=== PATIENT | male | born 1990 | race Caucasian/White ===

== ENCOUNTER → 2016-11-24 | Outpatient (REF) | payer OTHER ==
[~2016-11-24] MED LIST: ATIV1TAB10 PO; NAPR375T PO; NAPR375T2 PO; PRAZ1CAP PO; SERT-141 PO; ZIPR20CA13 PO; atarax PO
[2016-11-24 13:05] LABS: BASO # 0.1 K/mm3 (0.0-0.2); EOS # 0.2 K/mm3 (0.0-0.50); EOS % 2.7 % (0.0-3.0); LARGE UNSTAINED CELL # 0.2 K/mm3 (0.0-0.4); LYMPH # 2.2 K/mm3 (1.5-6.5); LYMPH % 27.8 % (24.0-44.0); MEAN CORPUSCULAR HEMOGLOBIN 27.7 pg (27.0-33.0); MEAN CORPUSCULAR HGB CONC 33.9 g/dl (32.0-36.5); MEAN CORPUSCULAR VOLUME 81.7 fl (80.0-96.0); MONO # 0.4 K/mm3 (0.0-0.8); MONO % 4.8 % (0.0-5.0); NEUTROPHILS # 4.8 K/mm3 (1.8-7.7); NEUTROPHILS % 60.6 % (36.0-66.0); PLATELET COUNT, AUTOMATED 236 k/mm3 (150-450); RED CELL DISTRIBUTION WIDTH 12.4 % (11.5-14.5); WHITE BLOOD COUNT 7.9 K/mm3 (4.0-10.0)
== END ==
LOC: M SFHCPLAZ 09:33
PROVIDERS: ATTEND Physician Assistant
DX: R36.9 Urethral discharge, unspecified (principal)

== ENCOUNTER → 2016-12-04 | Outpatient (REF) | payer OTHER ==
[2016-12-04 11:55] LABS: BASO % 0.6 % (0.0-1.0); EOS # 0.2 K/mm3 (0.0-0.50); EOS % 2.9 % (0.0-3.0); LARGE UNSTAINED CELL # 0.2 K/mm3 (0.0-0.4); LARGE UNSTAINED CELL % 2.3 % (0.0-4.0); LYMPH # 2.1 K/mm3 (1.5-6.5); LYMPH % 25.4 % (24.0-44.0); MEAN CORPUSCULAR HEMOGLOBIN 28.1 pg (27.0-33.0); MEAN CORPUSCULAR HGB CONC 34.3 g/dl (32.0-36.5); MEAN CORPUSCULAR VOLUME 81.9 fl (80.0-96.0); MONO # 0.4 K/mm3 (0.0-0.8); MONO % 4.8 % (0.0-5.0); NEUTROPHILS # 5.4 K/mm3 (1.8-7.7); PLATELET COUNT, AUTOMATED 282 k/mm3 (150-450); RED CELL DISTRIBUTION WIDTH 12.6 % (11.5-14.5); WHITE BLOOD COUNT 8.4 K/mm3 (4.0-10.0)
[2016-12-04 12:23] LABS: ALBUMIN 3.7 GM/DL (3.2-5.2); ALKALINE PHOSPHATASE 107 U/L (45-117); ALT/SGPT 27 U/L (12-78); ANION GAP 9 MEQ/L (8-16); AST/SGOT 11 U/L (15-37); BILIRUBIN,TOTAL 0.3 MG/DL (0.2-1.0); BLOOD UREA NITROGEN 16 MG/DL (7-18); CALCIUM LEVEL 8.5 MG/DL (8.5-10.1); CARBON DIOXIDE LEVEL 25 MEQ/L (21-32); CHLORIDE LEVEL 108 MEQ/L (98-107); CHOLESTEROL LEVEL 145 MG/DL (<200); CREATININE FOR GFR 1.15 MG/DL (0.70-1.30); FERRITIN 54 NG/ML (26-388); GLOMERULAR FILTRATION RATE > 60.0 (>60); GLUCOSE, FASTING 82 MG/DL (70-105); MAGNESIUM LEVEL 2.2 MG/DL (1.8-2.4); PERCENT SATURATION 16.7 % (19.7-37.4); POTASSIUM SERUM 4.3 MEQ/L (3.5-5.1); SODIUM LEVEL 142 MEQ/L (136-145); TOTAL IRON BINDING CAPACITY 378 UG/DL (250-450); TOTAL PROTEIN 7.4 GM/DL (6.4-8.2); TRIGLYCERIDES LEVEL 179 MG/DL (<150)
== END ==
LOC: M SFHCPLAZ 08:54
PROVIDERS: ATTEND Physician Assistant
DX: D50.9 Iron deficiency anemia, unspecified (principal); E78.4 Other hyperlipidemia; E83.42 Hypomagnesemia; E55.9 Vitamin D deficiency, unspecified

== ENCOUNTER → 2016-12-09 | Outpatient (CLI) | payer OTHER ==
--- NOTE | 2016-12-09 16:49 | REP ---
SCROTAL ULTRASOUND: 12/09/2016. Clinical history: Scrotal pain. Comparison: 08/03/2013. Findings: The right testis is 4.1 x 2.6 x 4.2 cm. Left testis is 4.6 x 2.6 x 4 cm. Both are homogeneous in echotexture. There is no mass, cyst, calcification or abnormal blood flow. There is no hyperemia. I see no hydrocele. There is somewhat prominent vessels on the left which do not change in diameter with Valsalva maneuver. No evidence of torsion or torsion detorsion. The Doppler tracing shows resistive index 0.53 on the right and 0.59 on the left. Epididymal head has a CC diameter of 1.5 cm on the right and 0.8 cm on left without cyst or solid mass nor hyperemia to suggest epididymitis. Impression: 1. Bilateral testes are normal in size and show no hyperemia, epididymitis, epididymal cyst or hydrocele. 2. Some prominent vessels on the left without change in caliber with Valsalva maneuver, cannot confirm varicocele. 3. No evidence of testicular mass or focal lesion. Normal blood flow in both testes. Signed by Manolo Wilson MD 12/09/2016 04:54 P
== END ==
LOC: M RAD 14:56
PROVIDERS: ATTEND Physician Assistant
DX: N45.1 Epididymitis (principal); N50.819 Testicular pain, unspecified

== ENCOUNTER → 2017-01-05 | Outpatient (CLI) | payer OTHER ==
[~2017-01-05] MED LIST changes: +GASTROGRAFIN SOLUTION 30ML (Q9963) As Ordered ONE; +ISOVUE-370 76% 100ML VIAL (Q9967) As Ordered ONE; -SERT-141 PO; +SERT50TA PO
--- NOTE | 2017-01-05 15:14 | REP ---
Clinical: Abdominal and testicular pain. Technique: Axial contrast enhanced images from the lung bases to the pubic symphysis using oral and 100 ml Isovue 370 intravenous contrast material with noncontrast images of the abdomen as well as coronal and sagittal re-formations. Findings: Lung bases are clear. Visualized heart and pericardium normal. Liver, spleen, pancreas, gallbladder, bilateral adrenal glands and kidneys are normal. The enteric system is without obstruction or acute inflammatory process. Normal terminal ileum and appendix identified in the right lower quadrant pelvis demonstrates normal bladder and age appropriate prostate/seminal vesicles. No significant ventral or inguinal hernias. No ascites. No adenopathy. No free air. Vasculature appears normal. Musculoskeletal structures are intact. Impression: Normal contrast enhanced CT of the abdomen and pelvis. Signed by Scotty Tang MD 01/05/2017 03:06 P
== END ==
LOC: M RAD 12:52
PROVIDERS: ATTEND Nurse Practitioner Women's Health
DX: R10.30 Lower abdominal pain, unspecified (principal); N50.819 Testicular pain, unspecified
CPT/HCPCS: 74178; Q9963; Q9967

== ENCOUNTER → 2017-06-25 | Outpatient (REF) | payer OTHER ==
[~2017-06-25] MED LIST changes: -GASTROGRAFIN SOLUTION 30ML (Q9963) As Ordered ONE; -ISOVUE-370 76% 100ML VIAL (Q9967) As Ordered ONE; +NAPR-855 PO; -NAPR375T2 PO
== END ==
LOC: M SFHCPLAZ 09:30
PROVIDERS: ATTEND Physician Assistant
DX: E55.9 Vitamin D deficiency, unspecified (principal)

== ENCOUNTER → 2017-07-01 | Outpatient (REF) | payer OTHER | LOC: M SFHCPLAZ 11:44 | PROVIDERS: ATTEND Family Medicine | DX: L98.9 Disorder of the skin and subcutaneous tissue, unspecified (principal) ==

== ENCOUNTER → 2017-09-28 | Outpatient (CLI) | payer OTHER ==
--- NOTE | 2017-10-01 16:29 | SLEEPHOME ---
DATE OF PROCEDURE: 09/28/2017 REFERRING PHYSICIAN: [facility] home sleep testing was performed due to concern for the obstructive sleep apnea syndrome in this patient with a history of excessive somnolence and nonrestorative sleep. 10 hours and 59 minutes of data were reviewed. Of these, 8 hours and 34 minutes were marked as time in bed. During the interval marked time in bed there were 51 respiratory events were identified of 10 seconds in duration or greater for a respiratory event index of 5.9. The events were primary obstructive. Baseline pulse rate was 83. Pulse rate ranged 43-112. Baseline oxygen saturation was 94%. Lowest oxygen saturation recorded was 81%. Testing was performed in both the supine and non-supine positions. IMPRESSION: Abnormal home sleep testing with repetitive respiratory events and oxygen desaturations to 81% with a respiratory event index of 5.9 is consistent with the obstructive sleep apnea syndrome. RECOMMENDATIONS: The patient should be referred for formal sleep evaluation and in laboratory pressure titration.
== END ==
LOC: M SLEEP HO 13:06
PROVIDERS: ATTEND Nurse Practitioner Adult Health
DX: G47.30 Sleep apnea, unspecified (principal)

== ENCOUNTER → 2018-02-04 | Outpatient (REF) | payer OTHER ==
[2018-02-04 14:02] LABS: ALBUMIN 3.8 GM/DL (3.2-5.2); ALBUMIN/GLOBULIN RATIO 0.97 (1.00-1.93); ALKALINE PHOSPHATASE 90 U/L (45-117); ALT/SGPT 45 U/L (12-78); ANION GAP 6 MEQ/L (8-16); AST/SGOT 29 U/L (7-37); BILIRUBIN,TOTAL 0.4 MG/DL (0.2-1.0); BLOOD UREA NITROGEN 15 MG/DL (7-18); CALCIUM LEVEL 8.7 MG/DL (8.5-10.1); CARBON DIOXIDE LEVEL 30 MEQ/L (21-32); CHLORIDE LEVEL 104 MEQ/L (98-107); CHOLESTEROL LEVEL 166 MG/DL (<200); CREATININE FOR GFR 1.13 MG/DL (0.70-1.30); GLOMERULAR FILTRATION RATE > 60.0 (>60); GLUCOSE, FASTING 87 MG/DL (70-100); HDL CHOLESTEROL 25 MG/DL (>40); LDL CHOLESTEROL 89.6 MG/DL (<100); NON-HDL-C 141 MG/DL; POTASSIUM SERUM 4.2 MEQ/L (3.5-5.1); SODIUM LEVEL 140 MEQ/L (136-145); TOTAL PROTEIN 7.7 GM/DL (6.4-8.2); TRIGLYCERIDES LEVEL 257 MG/DL (<150)
[2018-02-04 14:57] LABS: ESTIMATED AVERAGE GLUCOSE 111 MG/DL (60-110); HEMOGLOBIN A1c 5.5 %
== END ==
LOC: M SFHCPLAZ 11:21
DX: E66.01 Morbid (severe) obesity due to excess calories (principal)

== ENCOUNTER → 2018-11-08 | Outpatient (REF) | payer OTHER | LOC: M SFHCPLAZ 09:39 | PROVIDERS: ATTEND Family Medicine | DX: Z13.1 Encounter for screening for diabetes mellitus (principal); Z13.220 Encounter for screening for lipoid disorders; E55.9 Vitamin D deficiency, unspecified ==

== ENCOUNTER → 2019-09-26 | Outpatient (REF) | payer OTHER ==
[~2019-09-26] MED LIST changes: +SERT-141 PO; -SERT50TA PO
[2019-09-26 15:29] LABS: HEMATOCRIT 43.5 % (42.0-52.0); HEMOGLOBIN 14.6 g/dl (13.5-17.5); MEAN CORPUSCULAR HEMOGLOBIN 27.6 pg (27.0-33.0); MEAN CORPUSCULAR HGB CONC 33.6 g/dl (32.0-36.5); MEAN CORPUSCULAR VOLUME 82.2 fl (80.0-96.0); PLATELET COUNT, AUTOMATED 245 10^3/uL (150-450); RED BLOOD COUNT 5.29 10^6/uL (4.30-6.10); WHITE BLOOD COUNT 6.6 10^3/uL (4.0-10.0)
[2019-09-26 15:50] LABS: HEMOGLOBIN A1c 5.6 %
[2019-09-26 16:03] LABS: ALT/SGPT 38 U/L (12-78); BILIRUBIN,TOTAL 0.3 MG/DL (0.2-1.0); BLOOD UREA NITROGEN 15 MG/DL (7-18); CARBON DIOXIDE LEVEL 28 MEQ/L (21-32); CHLORIDE LEVEL 107 MEQ/L (98-107); CHOLESTEROL LEVEL 174 MG/DL (<200); CHOLESTEROL RISK RATIO 6.692 (<5); CREATININE FOR GFR 1.03 MG/DL (0.70-1.30); GLOMERULAR FILTRATION RATE > 60.0 (>60); GLUCOSE, FASTING 77 MG/DL (70-100); HDL CHOLESTEROL 26 MG/DL (>40); NON-HDL-C 148 MG/DL; POTASSIUM SERUM 4.1 MEQ/L (3.5-5.1); SODIUM LEVEL 141 MEQ/L (136-145); TRIGLYCERIDES LEVEL 519 MG/DL (<150)
[2019-09-26 16:04] LABS: ALBUMIN 3.7 GM/DL (3.2-5.2); FREE T4 2.18 NG/DL (0.76-1.46); TOTAL PROTEIN 7.1 GM/DL (6.4-8.2)
== END ==
LOC: M SFHCPLAZ 13:56
PROVIDERS: ATTEND Physician Assistant
DX: E55.9 Vitamin D deficiency, unspecified (principal); E66.01 Morbid (severe) obesity due to excess calories; E78.2 Mixed hyperlipidemia; G47.30 Sleep apnea, unspecified

== ENCOUNTER → 2020-07-06 | Outpatient (CLI) | payer OTHER ==
[2020-07-06 17:40] LABS: BLOOD UREA NITROGEN 18 MG/DL (7-18); CARBON DIOXIDE LEVEL 28 MEQ/L (21-32); CHLORIDE LEVEL 105 MEQ/L (98-107); CHOLESTEROL LEVEL 173 MG/DL (<200); CHOLESTEROL RISK RATIO 6.407 (<5); CREATININE FOR GFR 1.13 MG/DL (0.70-1.30); FREE T4 2.03 NG/DL (0.76-1.46); GLOMERULAR FILTRATION RATE > 60.0 (>60); GLUCOSE, FASTING 86 MG/DL (70-100); HDL CHOLESTEROL 27 MG/DL (>40); LDL CHOLESTEROL 96 MG/DL (<100); NON-HDL-C 146 MG/DL; POTASSIUM SERUM 4.4 MEQ/L (3.5-5.1); SODIUM LEVEL 141 MEQ/L (136-145); TRIGLYCERIDES LEVEL 250 MG/DL (<150)
[2020-07-09 10:47] LABS: TOTAL 25(OH) VITAMIN D 35.7 NG/ML (30.0-100.0)
== END ==
LOC: M PLALAB 14:09
PROVIDERS: ATTEND Physician Assistant
DX: E55.9 Vitamin D deficiency, unspecified (principal); E78.2 Mixed hyperlipidemia; R94.6 Abnormal results of thyroid function studies

== ENCOUNTER → 2020-11-23 | Outpatient (REF) | payer OTHER ==
[2020-11-23 18:05] LABS: HEMOGLOBIN A1c 5.3 %
[2020-11-23 18:14] LABS: HEMATOCRIT 46.8 % (42.0-52.0); HEMOGLOBIN 15.5 g/dl (13.5-17.5); MEAN CORPUSCULAR HEMOGLOBIN 27.3 pg (27.0-33.0); MEAN CORPUSCULAR HGB CONC 33.1 g/dl (32.0-36.5); MEAN CORPUSCULAR VOLUME 82.4 fl (80.0-96.0); PLATELET COUNT, AUTOMATED 300 10^3/uL (150-450); RED BLOOD COUNT 5.68 10^6/uL (4.30-6.10)
[2020-11-23 18:17] LABS: FREE T4 2.99 NG/DL (0.76-1.46); THYROID STIMULATING HORMONE 2.33 uIU/ML (0.358-3.740)
[2020-11-23 18:18] LABS: TOTAL 25(OH) VITAMIN D 21.7 NG/ML (30.0-100.0)
== END ==
LOC: M PLALAB 14:34
PROVIDERS: ATTEND Physician Assistant
DX: K21.9 Gastro-esophageal reflux disease without esophagitis (principal); E05.90 Thyrotoxicosis, unspecified without thyrotoxic crisis or storm; E66.01 Morbid (severe) obesity due to excess calories; E55.9 Vitamin D deficiency, unspecified

== ENCOUNTER → 2021-01-24 | Outpatient (CLI) | payer OTHER | LOC: M PLALAB 15:35 | PROVIDERS: ATTEND Nurse Practitioner Family | DX: R94.6 Abnormal results of thyroid function studies (principal) ==

== ENCOUNTER → 2021-08-09 | Outpatient (CLI) | payer OTHER ==
[~2021-08-09] MED LIST changes: +HYDR50CA2 PO; +IBUP-1022 PO; +LATANOPROST; +OMEP-221 PO; +PROP15DR12
--- NOTE | 2021-08-10 18:20 | ECGEPIP ---
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
== END ==
LOC: M EKG 09:46
PROVIDERS: ATTEND Anesthesiology
DX: G47.9 Sleep disorder, unspecified (principal)

== ENCOUNTER → 2021-08-09 | Outpatient (CLI) | payer OTHER | LOC: M LABSMTC 09:27 | PROVIDERS: ATTEND Anesthesiology | DX: Z01.818 Encounter for other preprocedural examination (principal); Z11.52 Encounter for screening for COVID-19 ==

== ENCOUNTER 2021-08-14 07:47 | Day surgery (SDC) | payer OTHER ==
[~2021-08-14] VITALS: Ht 177.8 cm; Wt 157.4 kg
[~2021-08-14 07:47] MED LIST changes: +LIDOCAINE 1% MDV 20ML VIAL SQ PRN; +LR 1,000 ML IV ONE
--- OUTSIDE RECORDS SUMMARY | 2021-08-14 07:51 | CCD ---
Author Author [facility] Organization [facility] Address Unknown Phone Unavailable Care Team Providers Care Rafter Cutting Machine Operator Name Role Phone Mercy Melendez Unavailable PROBLEMS Type Condition ICD9-CM Code PVN20-TL Code Onset Dates Condition S tatus W/U Status Risk SNOMED Code Notes Problem Headache R51 Active confirmed 09847441 Problem Other hyperlipidemia E78.4 Active confirmed 60053128 Problem Epilepsy, unspecified, not intractable, without status epilepticus G40.909 Active confirmed 85833547 Problem GERD (gastroesophageal reflux disease) K21.9 A ctive confirmed 896058058 Problem Other obesity E66.8 Active confirmed 011399 001 Problem Vitamin D deficiency E55.9 Active confirmed 17190633 Problem Depression F32.9 Active confirmed 24241355 Problem Body mass index (BMI) of 45.0-49.9 in adult Z68.42 Active confirmed 300093423 Problem Sleep apnea, unspecified type G47.30 Active confirm ed 09451414 Problem Ulnar neuropathy at elbow of left upper extremity G56.22 Active confirmed 575215136 Problem Bilateral carpal tunnel syndrome G56.03 Active confirmed 45530969819692595 Problem Morbid (severe) obesity due to excess calories E66 .01 Active confirmed 860936231 Problem Swelling of tonsil J35.1 Active confirmed 4 45257669 Problem Urethral discharge R36.9 Active confirmed 9 284405 Problem Mixed hyperlipidemia E78.2 Active confirmed 649595056 Problem History of bipolar disorder Z86.59 Active confirmed 755717151 Problem Chewing tobacco nicotine dependence without complication F17.220 Active confirmed 71799760 Problem Subclinical hyperthyroidism E05.90 Active confirmed 837338737 ALLERGIES Allergen (clinical drug ingredient) Drug/Non Drug Allergy do cumented on EMR Reaction Allergy Type Onset Date Status Chocolate chocolate vomiting Non Drug Allergy Active ENCOUNTERS from 1989 to 2021-08-09 Encounter Location Date Provider Diagnosis [facility] Nicolasa [address] [phone] [place] [address] Jul, Mercy Melendez History of bipolar disorder Z86.59 ; Mixed hyperlipidemia E78.2 ; Morbid (severe) obesity due to excess calories E66.01 ; Depression F32.9 ; Sleep apnea, unspecified type G47.30 and Chewing tobacco nicotine dependence without complication F17.220 IMMUNIZATIONS Vaccine Route Administration Date Status Influenza 18 yrs & older Flublok IM Intramuscular Oct 19, 2020 Administered TDAP IM Intramuscular Aug 29, 2015 Administered Influenza 6mo & up Fluzone Unknown Jul 05, 2017 Admin istered Influenza 6mo & up Fluzone Unknown Jul 30, 2016 Admin istered Influenza 6mo & up Fluzone IM Intramuscular Aug 29, 2015 Admi nistered Influenza 6mo & up Fluzone IM Intramuscular Jul 12, 2014 Admi nistered Influenza 6mo & up Fluzone IM Intramuscular Aug 01, 2013 Admi nistered SOCIAL HISTORY Tobacco Use: Social History Observation Description Date Details (start date - stop date) never smoker Sex Assigned At : Social History Observation Description Sex Assigned At Unknown Audit Question Answer Notes Total Score: 0 Interpretation: Alcohol Education Language: Question Answer Notes Languages spoken: Latvian Latter-Day: Question Answer Notes Latter-Day 33 None Sexual Hx: Question Answer Notes Had sex in the last 12 months (vaginal, oral, or anal)? Yes Have you ever had an STD? No Prevention Strategies discussed: Other with Women only Use protection? No Drug and Alcohol Question Answer Notes Total Score: 0 Interpretation: No problems reported Alcohol Screening: Question Answer Notes Did you have a drink containing alcohol in the past year? No Points 0 Interpretation Negative BMI Care Goal Follow-Up Question Answer Notes Above Normal BMI Follow-Up Giving encouragement to exercise Tobacco Use: Question Answer Notes Are you a: never smoker Additional Findings: Tobacco User Chews tobacco Smoking Cessation Information Given 06/25/2017 REASON FOR REFERRAL No Information VITAL SIGNS Weight 353.6 lbs Jul, Weight-kg 160.39 kg Jul, Height 70 in Jul, BMI 50.73 kg/m2 Jul, MEDICATIONS Medication SIG (Take, Route, Frequency, Duration) Notes Start Da te End Date Status MiraLax 1 packet mixed with 8 ounces of fluid Or ally Once a day for 30 day(s) taking as needed February, Active Topiramate 100 mg 1 tab Orally Daily at bedtime Dr Baer Not-Taking Prazosin HCl 5 MG 1 capsule Orally Daily at bedtime Active oxyCODONE-Acetaminophen 5-325 MG (Schedule II Drug) TA KE ONE TABLET BY MOUTH EVERY 6 HOURS NEEDED FOR PAIN MAXIMUM DAILY DOSE 5 Oral for 3 Not-Taking Artificial Tears 1.4 % Ophthalmic A ctive Xalatan 0.005 % 1 drop into affected eye in the evening Ophthalm ic Once a day Active traZODone HCl 100 MG 1 tablet at bedtime Orally Once a day Not-Taking hydrOXYzine HCl 50 MG 1 tablet as needed Orally every 8 hrs Active buPROPion HCl ER (SR) 150 MG 1 tablet Orally Twice a day for 90 day(s ) Not-Taking Contrave 8-90 MG 2 tablets Orally Twice a day for 30 day( s) Start with one tab twice daily for one week, then increase to 2 tabs twice daily Oct, Not-Taking Gabapentin 300 MG 1 capsule Orally three times daily Active Vitamin D (Ergocalciferol) 1.25 MG (68732 UT) 1 capsul e Orally once a week for 90 days Sep, Not-Taking Prazosin HCl 2 MG 1 capsule at bedtime Orally Once a day for 30 day(s ) Active Vraylar 1.5 MG 1 cap Orally Once a day Not-Taking Triamcinolone Acetonide 0.1 % 1 application to rash on forearms Externally Twice a day for 7 day(s) May, Not-Taking Ibuprofen 800 MG 1 tablet with food or milk as needed Ora lly Three times a day Active Trulicity 0.75 MG/0.5ML as directed Subcutaneous weekly for 30 d ay(s) Nov, Not-Taking Omeprazole 40 MG 1 capsule Orally Once a day for 90 day(s) Active Glucocard Expression Test - as directed In Vitro three times daily for 30 Days Aug, Not-Taking Naltrexone HCl 50 MG half of a tablet orally BID for 30 days Not-Taking Omeprazole 20 MG TAKE ONE CAPSULE BY MOUTH EVERY DAY for 30 duplicate Not-Taking Nicorette Mini 2 MG 1 lozenge as needed Mouth/Th roat q2 hours prn. MDD 12 for 30 day(s) Mar, Not-Taking Vitamin D 2000 UNIT 1 tablet Orally Once a day for 90 day(s) Nov, Active Wrist Brace - as directed left wrist to be worn nightl y, Dx: G56.03 for 99 days Jan, Active Wrist Brace - as directed right wrist to b e worn nightly, Dx: G56.03 for 99 days Jan, Active PROCEDURES No Information RESULTS No Results REASON FOR VISIT CCM F/U MEDICAL (GENERAL) HISTORY Type Description Date Medical History Testalgia Medical History Anxiety Medical History Depression Medical History Hallucination Medical History Obesity Medical History Penile discharge Medical History Arthritis right knee Medical History primary open angle glaucoma, mild, left eye- follows with ophthalmology Medical History Free T4 elevated- referred t o endocrinology 01/2021, nothing wrong, check thyroid levels annually Surgical History wisdom teeth removal 10/2019 Hospitalization History psychiatric illness 05/06/14- 4 Goals Section No Information Health Concerns No Information MEDICAL EQUIPMENT No Information MENTAL STATUS No Information FUNCTIONAL STATUS No Information ASSESSMENTS Encounter Date Diagnosis Assessment Notes Treatment Notes Treatm ent Clinical Notes Jul, History of bipolar disorder (ICD-10 - Z86.59) Jul, Mixed hyperlipidemia (ICD-10 - E78.2) Jul, Morbid (severe) obesity due to excess calories ( ICD-10 - E66.01) Jul, Depression (ICD-10 - F32.9) Jul, Sleep apnea, unspecified type (ICD-10 - G47.30) Jul, Chewing tobacco nicotine dep endence without complication (ICD-10 - F17.220) Jul, Other Notes: Chronic Care Plan and Goals Labs of Note 11/23/20: HgA1c 5.3 07/06/2020: Trigylcerides 250 (goal <150), Cholesterol HDL 27(goal >40), LDL 96(goal <100) Vitals 01/01/21 : Wt(BMI) 331.2(47.5) 06/11/21 : Wt(BMI) 340.6(48.78) 08/06/21 : Wt(BMI) 353.6 (50.73) 10/19/20 BP 134/86 06/11/21 BP 130/80 Patient Goals with Plan and Timeframe 1)Lose Weight- Plan: Will increase activity by adding intentional exercise, continuing to work outside 4-5 time a week (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 Lifestyle Change #1: 1 mile or 20 minute morning walk (either outdoors or using [employer] Walking Video) 5 times per week by next visit. 08/06/21 walking 1 day per week, plan to increase to 2x/week by next appointment 2)Improve Cholesterol Labwork- Plan: Will improve nutrition by making diet changes Lifestyle Change #2: Reduce soda intake, replace soda with water and low/no calorie sweetener/flavor, only one soda per week by next visit. 08/06/21-Changed to sugar free drinks at home. Has been drinking soda when provided while working, plan to reduce to 1 daily. Lifestyle Change #3: Use portion plate method at meal time. Eat at least one vegetable and one -fruit daily by next office visit. Lifestyle Change #4: Find one new recipe you like that you can make at home that follows the portion plate. Report on it next visit. 08/06/21-Sheppards pie with other vegetable instead of corn, no cheese Educational Materials: Planning Healthy Meals Food Nutrition Guide-(Replacement, last one damaged) 3)Continue to improve mental health Plan: Continue to attend counseling appointments 4)Attend all scheduled follow-up appointments Plan: Continue to schedule transportation in advance Please call with any questions, comments, or concerns. PLAN OF TREATMENT Next Appt Details 4 Weeks Reason:CCM Follow-Up Provider Name:Mercy Melendez, 2021-09-10 01:30:00 PM, [address] [place] [address] , [place], [address], Provider Name:Libia Gonzáles, 12-10 01:45:00 PM, [address] [place] [address] , [place], [address], Follow Up:4 WeeksCCM Follow-Up Insurance Providers Payer Name Payer Address Payer Phone Insured Name Patient Relati onship to Insured Coverage Start Date Coverage End Date [facility] COMMUNITY PLAN [facility] [place] [address] [facility] [id number] NANCY CISSE self
--- OUTSIDE RECORDS SUMMARY | 2021-08-14 07:52 | CCD | Continuity of Care Document ---
Author Author Sanchez VELASCO MD Organization Unknown Address [address] [place] [address] Phone [phone] Care Team Providers Care Perfect Bind Machine Operator Name Role Phone Renee Sullivan P.A.-C AUTM [phone] AUTM Unavailable AUTM Unavailable Problems Active Problems Provider Date Disturbance of consciousness Aicha East A.NDerrickPDerrick Onse t: 09/15/2017 Sleep apnea Aicha [facility] A.N.P. Onset: 2016 Social History Type Date Description Comments Sex Unknown Smokeless Tobacco Current User ETOH Use Denies alcohol use Tobacco Use Reviewed: 05/23/20 Patient has never smoked Recreational Drug Use Denies Drug Use Smoking Status Reviewed: 05/23/20 Patient has never smoked Allergies and adverse reactions Description No Known Drug Allergies Medications Active Medications SIG Qnty Indications Ordering Provide r Date CPAP Apap 4-20/Zach Hyman MD 2018 Prazosin HCL 5mg Capsules 1 cap by mouth every day Unknown Omeprazole 40mg Capsules DR 1 tab. by mouth daily Unknown Prazosin HCL 2mg Capsules 1 cap by mouth every day Unknown Hydroxyzine HCL 50mg Tablets as needed 30tabs Unknown Latanoprost 0.005% Solution instill one drop in each eye at night time. Unknown Lubricant Eye Drops PF 0.5% Solution Unknown Vitamin D3 Super Strength 50mcg (2000 Ut) Capsules Unknown Ibuprofen 800mg Tablets q8h p rn Unknown Gabapentin 300mg Capsules bid Unknown Immunizations Description No Information Available Vital Signs Date Vital Result Comment 07/18/2021 9:57am Height 68.5 inches 5'8.50" Weight 347.00 lb BMI (Body Mass Index) 52.0 kg/m2 Leonard Body Weight 154 lb Weight 157.399 kg BSA (Body Surface Area) 2.60 m2 05/23/2020 11:20am BP Systolic 122 mmHg BP Diastolic 80 mmHg Heart Rate 80 /min O2 % BldC Oximetry 98 % Body Temperature 98.4 F Height 68.5 inches 5'8.50" Weight 337.00 lb BMI (Body Mass Index) 50.5 kg/m2 Leonard Body Weight 154 lb Weight 152.863 kg BSA (Body Surface Area) 2.57 m2 Results Description No Information Available Procedures Description No Information Available Medical Devices Description No Information Available Encounters Description No Information Available Assessments Description No Information Available Plan of Treatment No Information Available Functional Status Description No Information Available Mental Status Description No Information Available Referrals Refer to Dr Reason for Referral Status Appt Date Sammy Velasco M.D. swelling of tonsils Scheduled [address] [place] [address] [phone]
--- OUTSIDE RECORDS SUMMARY | 2021-08-14 07:52 | CCD ---
Author Author [facility] Organization [facility] Address Unknown Phone Unavailable Care Team Providers Care Car Sander Name Role Phone Mercy Melendez Unavailable PROBLEMS Type Condition ICD9-CM Code ZAI55-KD Code Onset Dates Condition S tatus W/U Status Risk SNOMED Code Notes Problem Headache R51 Active confirmed 81217936 Problem Other hyperlipidemia E78.4 Active confirmed 68665159 Problem Epilepsy, unspecified, not intractable, without status epilepticus G40.909 Active confirmed 43123496 Problem GERD (gastroesophageal reflux disease) K21.9 A ctive confirmed 820772303 Problem Other obesity E66.8 Active confirmed 444604 001 Problem Vitamin D deficiency E55.9 Active confirmed 82717047 Problem Depression F32.9 Active confirmed 41480969 Problem Body mass index (BMI) of 45.0-49.9 in adult Z68.42 Active confirmed 135488944 Problem Sleep apnea, unspecified type G47.30 Active confirm ed 52320846 Problem Ulnar neuropathy at elbow of left upper extremity G56.22 Active confirmed 252461705 Problem Bilateral carpal tunnel syndrome G56.03 Active confirmed 00600956133853773 Problem Morbid (severe) obesity due to excess calories E66 .01 Active confirmed 896727709 Problem Swelling of tonsil J35.1 Active confirmed 4 35978621 Problem Urethral discharge R36.9 Active confirmed 9 474729 Problem Mixed hyperlipidemia E78.2 Active confirmed 628477214 Problem History of bipolar disorder Z86.59 Active confirmed 792017421 Problem Chewing tobacco nicotine dependence without complication F17.220 Active confirmed 31542776 Problem Subclinical hyperthyroidism E05.90 Active confirmed 699843349 ALLERGIES Allergen (clinical drug ingredient) Drug/Non Drug Allergy do cumented on EMR Reaction Allergy Type Onset Date Status Chocolate chocolate vomiting Non Drug Allergy Active ENCOUNTERS from 1989 to 2021-07-18 Encounter Location Date Provider Diagnosis [facility] Nicolasa [address] [facility] [phone] [place] [address] Jun, Mercy Melendez IMMUNIZATIONS Vaccine Route Administration Date Status Influenza [...] Education Language: Question Answer Notes Languages spoken: Macedonian Denominational: Question Answer Notes Denominational 33 None Sexual Hx: Question Answer Notes [...] REASON FOR REFERRAL No Information VITAL SIGNS No information MEDICATIONS Medication SIG (Take, Route, Frequency, Duration) Notes Start Da te End Date Status Naltrexone HCl 50 MG half of a tablet orally BID for 30 days Not-Taking MiraLax 1 packet mixed with 8 ounces of fluid Or ally Once a day for 30 day(s) taking as needed February, Active Omeprazole 40 MG 1 capsule Orally Once a day for 90 day(s) Active hydrOXYzine HCl 50 MG 1 tablet as needed Orally every 8 hrs Active Gabapentin 300 MG 1 capsule before bedtime Ora lly three times daily for 90 day(s) Active Prazosin HCl 5 MG 1 capsule Orally Daily at bedtime Active Xalatan 0.005 % 1 drop into affected eye in the evening Ophthalm ic Once a day Active Wrist Brace - as directed right wrist to b e worn nightly, Dx: G56.03 for 99 days Jan, Active Glucocard Expression Test - as directed In Vitro three times daily for 30 Days Aug, Not-Taking oxyCODONE-Acetaminophen 5-325 MG (Schedule II Drug) TA KE ONE TABLET BY MOUTH EVERY 6 HOURS NEEDED FOR PAIN MAXIMUM DAILY DOSE 5 Oral for 3 Not-Taking traZODone HCl 100 MG 1 tablet at bedtime Orally Once a day Not-Taking buPROPion HCl ER (SR) 150 MG 1 tablet Orally Twice a day for 90 day(s ) Not-Taking Prazosin HCl 2 MG 1 capsule at bedtime Orally Once a day for 30 day(s ) Active Vitamin D 2000 UNIT 1 tablet Orally Once a day for 90 day(s) Nov, Active Omeprazole 20 MG TAKE ONE CAPSULE BY MOUTH EVERY DAY for 30 duplicate Not-Taking Ibuprofen 800 MG 1 tablet with food or milk as needed Ora lly Three times a day Active Artificial Tears 1.4 % Ophthalmic A ctive Nicorette Mini 2 MG 1 lozenge as needed Mouth/Th roat q2 hours prn. MDD 12 for 30 day(s) Mar, Active Vitamin D (Ergocalciferol) 1.25 MG (67989 UT) 1 capsul e Orally once a week for 90 days Sep, Not-Taking Trulicity 0.75 MG/0.5ML as directed Subcutaneous weekly for 30 d ay(s) Nov, Not-Taking Topiramate 100 mg 1 tab Orally Daily at bedtime Dr Baer Not-Taking Contrave 8-90 MG 2 tablets Orally Twice a day for 30 day( s) Start with one tab twice daily for one week, then increase to 2 tabs twice daily Oct, Not-Taking Wrist Brace - as directed left wrist to be worn nightl y, Dx: G56.03 for 99 days Jan, Active Vraylar 1.5 MG 1 cap Orally Once a day Not-Taking Triamcinolone Acetonide 0.1 % 1 application to rash on forearms Externally Twice a day for 7 day(s) May, Not-Taking PROCEDURES No Information RESULTS No Results REASON FOR VISIT Referral question MEDICAL (GENERAL) HISTORY Type Description Date Medical [...] No Information FUNCTIONAL STATUS No Information ASSESSMENTS No Information PLAN OF TREATMENT Next Appt Details Provider Name:Mercy Melendez, 2021-07-30 01:00:00 PM, [address], , [place], [address], Insurance Providers Payer Name Payer Address Payer Phone Insured Name Patient Relati onship to Insured Coverage Start Date Coverage End Date [facility] COMMUNITY PLAN [facility] [place] [address] [facility] [address] NANCY CISSE self
--- OUTSIDE RECORDS SUMMARY | 2021-08-14 07:52 | CCD ---
Author Author [facility] Organization [facility] Address Unknown Phone Unavailable Care Team Providers Care Poker Machine Attendant Name Role Phone Renee Sullivan Unavailable PROBLEMS Type Condition ICD9-CM Code [id number] Code Onset Dates Condition S tatus W/U Status Risk SNOMED Code Notes Problem Headache R51 Active confirmed 05791109 Problem Other hyperlipidemia E78.4 Active confirmed 33662049 Problem Epilepsy, unspecified, not intractable, without status epilepticus G40.909 Active confirmed 12882808 Problem GERD (gastroesophageal reflux disease) K21.9 A ctive confirmed 174368294 Problem Other obesity E66.8 Active confirmed 195209 001 Problem Vitamin D deficiency E55.9 Active confirmed 25974934 Problem Depression F32.9 Active confirmed 60589570 Problem Body mass index (BMI) of 45.0-49.9 in adult Z68.42 Active confirmed 548577690 Problem Sleep apnea, unspecified type G47.30 Active confirm ed 16156104 Problem Ulnar neuropathy at elbow of left upper extremity G56.22 Active confirmed 286801687 Problem Bilateral carpal tunnel syndrome G56.03 Active confirmed 04197556911622759 Problem Morbid (severe) obesity due to excess calories E66 .01 Active confirmed 145785358 Problem Swelling of tonsil J35.1 Active confirmed 4 78569435 Problem Urethral discharge R36.9 Active confirmed 9 374494 Problem Mixed hyperlipidemia E78.2 Active confirmed 898497740 Problem History of bipolar disorder Z86.59 Active confirmed 136320475 Problem Chewing tobacco nicotine dependence without complication F17.220 Active confirmed 63572843 Problem Subclinical hyperthyroidism E05.90 Active confirmed 454930163 ALLERGIES Allergen (clinical drug ingredient) Drug/Non Drug Allergy do cumented on EMR Reaction Allergy Type Onset Date Status Chocolate chocolate vomiting Non Drug Allergy Active ENCOUNTERS from 1989 to 2021-07-05 Encounter Location Date Provider Diagnosis [facility] Nicolasa [facility] [phone] [place] [address] May, Renee Nate Swelling of tonsil J35.1 ; G ERD (gastroesophageal reflux disease) K21.9 ; Sleep apnea, unspecified type G47.30 ; Mixed hyperlipidemia E78.2 ; Subclinical hyperthyroidism E05.90 ; Dependent edema R60.9 ; Chewing tobacco nicotine dependence without complication F17.220 ; Vitamin D deficiency E55.9 ; Body mass index (BMI) of 45.0-49.9 in adult Z68.42 and Morbid (severe) obesity due to excess calories E66.01 IMMUNIZATIONS Vaccine Route Administration Date Status Influenza [...] Education Language: Question Answer Notes Languages spoken: [place] Protestant: Question Answer Notes Protestant 33 None Sexual Hx: Question Answer Notes [...] Cessation Information Given 06/25/2017 REASON FOR REFERRAL from 1989 to 2021-07-05 Reason 31y/o male complaining of fr equent tonsil swelling and pain, he would like a consult for removal of his tonsils Diagnosis 1 Swelling of tonsil (J35.1) Referral Organization [facility] Nicolasa Referring Provider First Name Renee Referring Provider Last Name Nate Referring Provider Specialty Family Medicine Referred Provider [facility] ([facility]) Referred Provider Specialty Otolaryngology Referral Priority Routine General Notes Cuauhtemoc Elliott 07/04/2021 2:20 :47 PM > Referral submitted online, referral ID# [id number], scanned into patient's chart, faxedCuauhtemoc Elliott 07/04/2021 2:24:30 PM > referral faxed Clinical Notes Susana Santamaria 07/04/2021 9:08:35 AM > Waiting on [facility] referral auth VITAL SIGNS Weight 340 lbs May, Weight-kg 154.22 kg May, Height 70 in May, BMI 48.78 kg/m2 May, Heart Rate 97 /min May, Respiratory Rate 18 /min May, Temperature 97.3 degrees Fahrenheit May, Oximetry 99 May, Blood pressure systolic 130 mm Hg May, Blood pressure diastolic 80 mm Hg May, MEDICATIONS Medication SIG (Take, Route, Frequency, Duration) [...] Mar, Active Vitamin D (Ergocalciferol) 1.25 MG (46673 UT) 1 capsul e Orally once a [...] Information RESULTS No Results REASON FOR VISIT follow up after 05/31 NS MEDICAL (GENERAL) HISTORY Type Description Date Medical [...] Notes Treatment Notes Treatm ent Clinical Notes May, Swelling of tonsil (ICD-10 - J35.1) patient requesting a consult for an evaluation for surgery May, GERD (gastroesophageal reflux disease) (ICD-10 - K21.9) chronic, controlled on current medication May, Sleep apnea, unspecified type (ICD-10 - G47.30) May, Mixed hyperlipidemia (ICD-10 - E78.2) based upon updated AHA/ACC cholesterol guidelines 2013, pt's LDL is reduced by current statin tx by sufficient percentage based on 10 year ASCVD risk stratification; no adjustments in statin tx needed May, Subclinical hyperthyroidism (ICD-10 - E05.90) cleared by endocrinology, will continue to monitor May, Dependent edema (ICD-10 - R60.9) patient should elevate his legs 20 minutes at a time 3-4 times a day I recommended patient start using compression stockings daily if his legs become swollen and painful for longer periods of time or he develops associated shortness of breath he should go to the ER immediately. he voiced understanding May, Chewing tobacco nicotine dep endence without complication (ICD-10 - F17.220) Chewing tobacco cessation advised for 5 min. Patient not willing to quit or cut back. I discussed with patient, in every day terms, the health effects associated with smoking. These included: cancer (lung, colon, head and neck), stroke, heart disease, gum infection, and chronic lung disease. Patient verbalized understanding. I will continue to encourage cessation. May, Vitamin D deficiency (ICD-10 - E55.9) patient takes vitamin D supplements May, Body mass index (BMI) of 45.0-49.9 in adult (ICD -10 - Z68.42) Discussed the health risks associated with obesity. Discussed dietary and lifestyle modifications for weight loss .These recommendations included eating smaller portions, follow a heart healthy diet, avoid liquid calories such as excessive soda consumption, and start incorporating regular aerobic exercise May, Morbid (severe) obesity due to excess calories ( ICD-10 - E66.01) May, Other Total time spen t with the patient on the day of the encounter: 30 minutes PLAN OF TREATMENT Treatment Notes Assessment Notes Clinical Notes Swelling of tonsil patient requesting a consult for an evaluation for surgery GERD (gastroesophageal reflux disease) c hronic, controlled on current medication Mixed hyperlipidemia based upon updated AHA/ACC cholesterol guidelines 2013, pt's LDL is reduced by current statin tx by sufficient percentage based on 10 year ASCVD risk stratification; no adjustments in statin tx needed Subclinical hyperthyroidism cleared by e ndocrinology, will continue to monitor Dependent edema patient should eleva te his legs 20 minutes at a time 3-4 times a Sandra recommended patient start using compression stockings dailyif his legs become swollen and painful for longer periods of time or he develops associated shortness of breath he should go to the ER immediately. he voiced understanding Chewing tobacco nicotine dependence without complication Chewing tobacco cessation advised for 5 min. Patient not willing to quit or cut back. I discussed with patient, in every day terms, the health effects associated with smoking. These included: cancer (lung, colon, head and neck), stroke, heart disease, gum infection, and chronic lung disease. Patient verbalized understanding. I will continue to encourage cessation. Vitamin D deficiency patient takes vitam in D supplements Body mass index (BMI) of 45.0-49.9 in adult Discussed the health risks associated with obesity. Discussed dietary and lifestyle modifications for weight loss .These recommendations included eating smaller portions, follow a heart healthy diet, avoid liquid calories such as excessive soda consumption, and start incorporating regular aerobic exercise Referrals Referral Date Details 31y/o male complaining of fr equent tonsil swelling and pain, he would like a consult for removal of his tonsils, ENT ([facility]) [facility] Next Appt Details 6 Months Reason: Provider Name:Mercy Melendez, 2021-07-30 01:00:00 PM, [address] [facility], , [place], [address], Insurance Providers Payer Name Payer Address Payer Phone Insured Name Patient Relati onship to Insured Coverage Start Date Coverage End Date [facility] [address] [facility] [address] [place] self
--- OUTSIDE RECORDS SUMMARY | 2021-08-14 07:52 | CCD | Continuity of Care Document ---
Author Author Sanchez VELASCO MD Organization Unknown Address [address] [facility] [address] [place] [address] Phone [phone] Care Team Providers Care Desktop Specialist Name Role Phone Renee Sullivan P.A.-C AUTM [phone] AUTM Unavailable AUTM Unavailable Problems Active Problems [...] lb BMI (Body Mass Index) 52.0 kg/m2 [place] Body Weight 154 lb Weight 157.399 kg BSA (Body Surface Area) 2.60 m2 05/23/2020 11:20am BP Systolic 122 mmHg BP Diastolic 80 mmHg Heart Rate 80 /min O2 % BldC Oximetry 98 % Body Temperature 98.4 F Height 68.5 inches 5'8.50" Weight 337.00 lb BMI (Body Mass Index) 50.5 kg/m2 [place] Body Weight 154 lb Weight 152.863 kg [...] Velasco M.D. swelling of tonsils Scheduled [address] [place] [address] [phone]
--- OUTSIDE RECORDS SUMMARY | 2021-08-14 07:52 | CCD | Continuity of Care Document ---
Author Author Sanchez VELASCO MD Organization Unknown Address [address] [facility] [address] [place] [address] Phone [phone] Care Team Providers Care Water Aerobics Instructor Name Role Phone Renee Sullivan P.A.-C AUTM [phone] AUTM Unavailable AUTM Unavailable Problems Active Problems [...] lb BMI (Body Mass Index) 52.0 kg/m2 [place] Body Weight 154 lb Weight 157.399 kg BSA (Body Surface Area) 2.60 m2 05/23/2020 11:20am BP Systolic 122 mmHg BP Diastolic 80 mmHg Heart Rate 80 /min O2 % BldC Oximetry 98 % Body Temperature 98.4 F Height 68.5 inches 5'8.50" Weight 337.00 lb BMI (Body Mass Index) 50.5 kg/m2 [place] Body Weight 154 lb Weight 152.863 kg BSA (Body Surface Area) 2.57 m2 Results Description No Information Available Procedures Date Code Description Status 07/18/2021 42769 Office/Outpatient New Moderate M DM 45-59 Minutes Completed Medical Devices Description No Information Available Encounters Type Date Location Provider Dx Diagnosis Office Visit 07/18/2021 10:10a [facility] Sammy Velasco MD J35.01 Chronic tonsillitis Assessments Date Code Description Provider 07/18/2021 J35.01 Chronic tonsillitis Sammy Velasco MD Plan of Treatment No Information Available Functional Status Description No Information Available Mental Status Description No Information Available Referrals Refer to Reason for Referral Status Appt Sammy Velasco M.D. swelling of tonsils Scheduled [address] [address] [phone]
--- OUTSIDE RECORDS SUMMARY | 2021-08-14 07:52 | CCD ---
Author Author [facility] Organization [facility] Address Unknown Phone Unavailable Care Team Providers Care Nurse Clinician Name Role Phone Omari Alba Unavailable PROBLEMS Type Condition ICD9-CM Code SGK27-GO Code Onset Dates Condition S tatus W/U Status Risk SNOMED Code Notes Problem Headache R51 Active confirmed 41263913 Problem Other hyperlipidemia E78.4 Active confirmed 33939270 Problem Epilepsy, unspecified, not intractable, without status epilepticus G40.909 Active confirmed 11783657 Problem GERD (gastroesophageal reflux disease) K21.9 A ctive confirmed 782869922 Problem Other obesity E66.8 Active confirmed 661938 001 Problem Vitamin D deficiency E55.9 Active confirmed 16743586 Problem Depression F32.9 Active confirmed 44101280 Problem Body mass index (BMI) of 45.0-49.9 in adult Z68.42 Active confirmed 299177179 Problem Sleep apnea, unspecified type G47.30 Active confirm ed 52913105 Problem Ulnar neuropathy at elbow of left upper extremity G56.22 Active confirmed 958586759 Problem Bilateral carpal tunnel syndrome G56.03 Active confirmed 56254305245866230 Problem Morbid (severe) obesity due to excess calories E66 .01 Active confirmed 170632430 Problem Swelling of tonsil J35.1 Active confirmed 4 10148475 Problem Urethral discharge R36.9 Active confirmed 9 603906 Problem Mixed hyperlipidemia E78.2 Active confirmed 640408073 Problem History of bipolar disorder Z86.59 Active confirmed 165900519 Problem Chewing tobacco nicotine dependence without complication F17.220 Active confirmed 32905796 Problem Subclinical hyperthyroidism E05.90 Active confirmed 509779175 ALLERGIES Allergen (clinical drug ingredient) Drug/Non Drug Allergy do cumented on EMR Reaction Allergy Type Onset Date Status Chocolate chocolate vomiting Non Drug Allergy Active ENCOUNTERS from 1989 to 2021-08-07 Encounter Location Date Provider Diagnosis [facility] Nicolasa [address] [facility] [phone] [place] [address] Jul, Omari Alba IMMUNIZATIONS Vaccine Route Administration Date Status Influenza [...] Education Language: Question Answer Notes Languages spoken: Nigerian Episcopal: Question Answer Notes Episcopal 33 None Sexual Hx: Question Answer Notes [...] daily Active Vitamin D (Ergocalciferol) 1.25 MG (26249 UT) 1 capsul e Orally once a [...] Information RESULTS No Results REASON FOR VISIT Transport Issue MEDICAL (GENERAL) HISTORY Type Description Date Medical [...] TREATMENT Next Appt Details Provider Name:Mercy Melendez, 2021-09-10 01:30:00 PM, [address] [place] [address] , [place], [address], Provider Name:Libia Gonzáles, 12-10 01:45:00 PM, [address] [place] [address] , [place], [address], Insurance Providers Payer Name Payer Address Payer Phone Insured Name Patient Relati onship to Insured Coverage Start Date Coverage End Date [facility] [employer] [facility] [address] [facility] [id number] [phone] NANCY CISSE self
--- OUTSIDE RECORDS SUMMARY | 2021-08-14 07:52 | CCD | Continuity of Care Document ---
Author Author Sanchez VELASCO MD Organization Unknown Address [address] [facility] [address] [place] [address] Phone [phone] Care Team Providers Care Malt House Loader Name Role Phone Renee Sullivan P.A.-C AUTM [phone] AUTM Unavailable AUTM Unavailable Problems Active Problems [...] lb BMI (Body Mass Index) 52.0 kg/m2 [place] Body Weight 154 lb Weight 157.399 kg BSA (Body Surface Area) 2.60 m2 05/23/2020 11:20am BP Systolic 122 mmHg BP Diastolic 80 mmHg Heart Rate 80 /min O2 % BldC Oximetry 98 % Body Temperature 98.4 F Height 68.5 inches 5'8.50" Weight 337.00 lb BMI (Body Mass Index) 50.5 kg/m2 [place] Body Weight 154 lb Weight 152.863 kg [...] Velasco M.D. swelling of tonsils Scheduled [address] [place] [address] [phone]
--- OUTSIDE RECORDS SUMMARY | 2021-08-14 07:53 | CCD ---
Author Author [facility] Organization [facility] Address Unknown Phone Unavailable Care Team Providers Care Sales Hunter Name Role Phone Eh Murray MD Unavailable Unavailable Eh Murray MD Unavailable Unavailable Eh Murray MD Unavailable Unavailable Eh Murray MD Unavailable Unavailable Eh Murray MD Unavailable Unavailable Eh Murray MD Unavailable Unavailable MARLA, B ETHAN DIRECT MARKETING REPRESENTATIVE Unavailable Unavailable MARLA, B ETHAN DIRECT MARKETING REPRESENTATIVE Unavailable Unavailable MARLA, B ETHAN DIRECT MARKETING REPRESENTATIVE Unavailable Unavailable MARLA, B ETHAN DIRECT MARKETING REPRESENTATIVE Unavailable Unavailable MARLA, B ETHAN DIRECT MARKETING REPRESENTATIVE Unavailable Unavailable MARLA, B ETHAN DIRECT MARKETING REPRESENTATIVE Unavailable Unavailable MARLA, B ETHAN DIRECT MARKETING REPRESENTATIVE Unavailable Unavailable MARLA, B ETHAN DIRECT MARKETING REPRESENTATIVE Unavailable Unavailable MARLA, B ETHAN DIRECT MARKETING REPRESENTATIVE Unavailable Unavailable MARLA, B ETHAN DIRECT MARKETING REPRESENTATIVE Unavailable Unavailable MARLA, B ETHAN DIRECT MARKETING REPRESENTATIVE Unavailable Unavailable MARLA, B ETHAN DIRECT MARKETING REPRESENTATIVE Unavailable Unavailable MARLA, B ETHAN DIRECT MARKETING REPRESENTATIVE Unavailable Unavailable MARLA, B ETHAN DIRECT MARKETING REPRESENTATIVE Unavailable Unavailable MARLA, B ETHAN DIRECT MARKETING REPRESENTATIVE Unavailable Unavailable MARLA, B ETHAN DIRECT MARKETING REPRESENTATIVE Unavailable Unavailable MARLA, B ETHAN DIRECT MARKETING REPRESENTATIVE Unavailable Unavailable MARLA, B ETHAN DIRECT MARKETING REPRESENTATIVE Unavailable Unavailable MARLA, B ETHAN DIRECT MARKETING REPRESENTATIVE Unavailable Unavailable MARLA, B ETHAN DIRECT MARKETING REPRESENTATIVE Unavailable Unavailable MARLA, B ETHAN DIRECT MARKETING REPRESENTATIVE Unavailable Unavailable MARLA, B ETHAN DIRECT MARKETING REPRESENTATIVE Unavailable Unavailable MARLA, B ETHAN DIRECT MARKETING REPRESENTATIVE Unavailable Unavailable MARLA, B ETHAN DIRECT MARKETING REPRESENTATIVE Unavailable Unavailable MARLA, B ETHAN DIRECT MARKETING REPRESENTATIVE Unavailable Unavailable MARLA, B ETHAN DIRECT MARKETING REPRESENTATIVE Unavailable Unavailable MARLA, B ETHAN DIRECT MARKETING REPRESENTATIVE Unavailable Unavailable MARLA, B ETHAN DIRECT MARKETING REPRESENTATIVE Unavailable Unavailable MARLA, B ETHAN DIRECT MARKETING REPRESENTATIVE Unavailable Unavailable MARLA, B ETHAN DIRECT MARKETING REPRESENTATIVE Unavailable Unavailable MARLA, B ETHAN DIRECT MARKETING REPRESENTATIVE Unavailable Unavailable MARLA, B ETHAN DIRECT MARKETING REPRESENTATIVE Unavailable Unavailable MARLA, B ETHAN DIRECT MARKETING REPRESENTATIVE Unavailable Unavailable MARLA, B ETHAN DIRECT MARKETING REPRESENTATIVE Unavailable Unavailable MARLA, B ETHAN DIRECT MARKETING REPRESENTATIVE Unavailable Unavailable MARLA, B ETHAN DIRECT MARKETING REPRESENTATIVE Unavailable Unavailable MARLA, B ETHAN DIRECT MARKETING REPRESENTATIVE Unavailable Unavailable MARLA, B ETHAN DIRECT MARKETING REPRESENTATIVE Unavailable Unavailable MARLA, B ETHAN DIRECT MARKETING REPRESENTATIVE Unavailable Unavailable MARLA, B ETHAN DIRECT MARKETING REPRESENTATIVE Unavailable Unavailable MARLA, B ETHAN DIRECT MARKETING REPRESENTATIVE Unavailable Unavailable MARLA, B ETHAN DIRECT MARKETING REPRESENTATIVE Unavailable Unavailable MARLA, B ETHAN DIRECT MARKETING REPRESENTATIVE Unavailable Unavailable MARLA, B ETHAN DIRECT MARKETING REPRESENTATIVE Unavailable Unavailable MARLA, B ETHAN DIRECT MARKETING REPRESENTATIVE Unavailable Unavailable MARLA, B ETHAN DIRECT MARKETING REPRESENTATIVE Unavailable Unavailable MARLA, B ETHAN DIRECT MARKETING REPRESENTATIVE Unavailable Unavailable MARLA, B ETHAN DIRECT MARKETING REPRESENTATIVE Unavailable Unavailable MARLA, B ETHAN DIRECT MARKETING REPRESENTATIVE Unavailable Unavailable MARLA, B ETHAN DIRECT MARKETING REPRESENTATIVE Unavailable Unavailable MARLA, B ETHAN DIRECT MARKETING REPRESENTATIVE Unavailable Unavailable MARLA, B ETHAN DIRECT MARKETING REPRESENTATIVE Unavailable Unavailable MARLA, B ETHAN DIRECT MARKETING REPRESENTATIVE Unavailable Unavailable MARLA, B ETHAN DIRECT MARKETING REPRESENTATIVE Unavailable Unavailable MARLA, B ETHAN DIRECT MARKETING REPRESENTATIVE Unavailable Unavailable MARLA, B ETHAN DIRECT MARKETING REPRESENTATIVE Unavailable Unavailable MARLA, B ETHAN DIRECT MARKETING REPRESENTATIVE Unavailable Unavailable MARLA, B ETHAN DIRECT MARKETING REPRESENTATIVE Unavailable Unavailable MARLA, B ETHAN DIRECT MARKETING REPRESENTATIVE Unavailable Unavailable MARLA, B ETHAN DIRECT MARKETING REPRESENTATIVE Unavailable Unavailable MARLA, B ETHAN DIRECT MARKETING REPRESENTATIVE Unavailable Unavailable MARLA, B ETHAN DIRECT MARKETING REPRESENTATIVE Unavailable Unavailable Sammy Velasco MD Unavailable Unavailable Sammy Velasco MD Unavailable Unavailable PawneeSammy MD Unavailable Unavailable PawneeSammy MD Unavailable Unavailable PawneeSammy MD Unavailable Unavailable PawneeSammy MD Unavailable Unavailable PawneeSammy MD Unavailable Unavailable PawneeSammy MD Unavailable Unavailable PawneeSammy MD Unavailable Unavailable PawneeSammy MD Unavailable Unavailable PawneeSammy MD Unavailable Unavailable PawneeSammy MD Unavailable Unavailable PawneeSammy MD Unavailable Unavailable PawneeSammy MD Unavailable Unavailable PawneeSammy MD Unavailable Unavailable PawneeSammy MD Unavailable Unavailable PawneeSammy MD Unavailable Unavailable PawneeSammy MD Unavailable Unavailable PawneeSammy MD Unavailable Unavailable PawneeSammy MD Unavailable Unavailable PawneeSammy MD Unavailable Unavailable PawneeSammy MD Unavailable Unavailable PawneeSammy MD Unavailable Unavailable PawneeSammy MD Unavailable Unavailable PawneeSammy MD Unavailable Unavailable PawneeSammy MD Unavailable Unavailable PawneeSammy MD Unavailable Unavailable PawneeSammy MD Unavailable Unavailable PawneeSammy MD Unavailable Unavailable PawneeSammy MD Unavailable Unavailable Pawnee, Sammy MD Unavailable Unavailable UNDERWOOD, J KEMI PA Unavailable Unavailable UNDERWOOD, J KEMI PA Unavailable Unavailable UNDERWOOD, J KEMI PA Unavailable Unavailable UNDERWOOD, J KEMI PA Unavailable Unavailable UNDERWOOD, J KEMI PA Unavailable Unavailable UNDERWOOD, J KEMI PA Unavailable Unavailable UNDERWOOD, J KEMI PA Unavailable Unavailable UNDERWOOD, J KEMI PA Unavailable Unavailable UNDERWOOD, J KEMI PA Unavailable Unavailable UNDERWOOD, J KEMI PA Unavailable Unavailable UNDERWOOD, J KEMI PA Unavailable Unavailable UNDERWOOD, J KEMI PA Unavailable Unavailable UNDERWOOD, J KEMI PA Unavailable Unavailable UNDERWOOD, J KEMI PA Unavailable Unavailable UNDERWOOD, J KEMI PA Unavailable Unavailable UNDERWOOD, J KEMI PA Unavailable Unavailable UNDERWOOD, J KEMI PA Unavailable Unavailable UNDERWOOD, J KEMI PA Unavailable Unavailable UNDERWOOD, J KEMI PA Unavailable Unavailable UNDERWOOD, J KEMI PA Unavailable Unavailable UNDERWOOD, J KEMI PA Unavailable Unavailable UNDERWOOD, J KEMI PA Unavailable Unavailable UNDERWOOD, J KEMI PA Unavailable Unavailable UNDERWOOD, J KEMI PA Unavailable Unavailable UNDERWOOD, J KEMI PA Unavailable Unavailable UNDERWOOD, J KEMI PA Unavailable Unavailable UNDERWOOD, J KEMI PA Unavailable Unavailable UNDERWOOD, J KEMI PA Unavailable Unavailable UNDERWOOD, J KEMI PA Unavailable Unavailable UNDERWOOD, J KEMI PA Unavailable Unavailable UNDERWOOD, J KEMI PA Unavailable Unavailable UNDERWOOD, J KEMI PA Unavailable Unavailable UNDERWOOD, J KEMI PA Unavailable Unavailable UNDERWOOD, J KEMI PA Unavailable Unavailable UNDERWOOD, J KEMI PA Unavailable Unavailable UNDERWOOD, J KEMI PA Unavailable Unavailable UNDERWOOD, J KEMI PA Unavailable Unavailable UNDERWOOD, J KEMI PA Unavailable Unavailable UNDERWOOD, J KEMI PA Unavailable Unavailable UNDERWOOD, J KEMI PA Unavailable Unavailable UNDERWOOD, J KEMI PA Unavailable Unavailable UNDERWOOD, J KEMI PA Unavailable Unavailable UNDERWOOD, J KEMI PA Unavailable Unavailable UNDERWOOD, J KEMI PA Unavailable Unavailable UNDERWOOD, J KEMI PA Unavailable Unavailable UNDERWOOD, J KEMI PA Unavailable Unavailable UNDERWOOD, J KEMI PA Unavailable Unavailable UNDERWOOD, J KEMI PA Unavailable Unavailable UNDERWOOD, J KEMI PA Unavailable Unavailable UNDERWOOD, J KEMI PA Unavailable Unavailable UNDERWOOD, J KEMI PA Unavailable Unavailable UNDERWOOD, J KEMI PA Unavailable Unavailable UNDERWOOD, J KEMI PA Unavailable Unavailable UNDERWOOD, J KEMI PA Unavailable Unavailable Jarad Viveros MD Unavailable Unavailable Jarad Viveros MD Unavailable Unavailable Jarad Viveros MD Unavailable Unavailable Jarad Viveros MD Unavailable Unavailable Jarad Viveros MD Unavailable Unavailable Jarad Viveros MD Unavailable Unavailable Jarad Viveros MD Unavailable Unavailable Jarad Viveros MD Unavailable Unavailable Jarad Viveros MD Unavailable Unavailable Jarad Viveros MD Unavailable Unavailable Jarad Viveros MD Unavailable Unavailable Jarad Viveros MD Unavailable Unavailable Jarad Viveros MD Unavailable Unavailable Jarad Viveros MD Unavailable Unavailable Jarad Viveros MD Unavailable Unavailable Jarad Viveros MD Unavailable Unavailable Jarad Viveros MD Unavailable Unavailable Jarad Viveros MD Unavailable Unavailable Jarad Viveros MD Unavailable Unavailable Jarad Viveros MD Unavailable Unavailable Jarad Viveros MD Unavailable Unavailable Jarad Viveros MD Unavailable Unavailable Jarad Viveros MD Unavailable Unavailable Jarad Viveros MD Unavailable Unavailable Jarad Viveros MD Unavailable Unavailable Jarad Viveros MD Unavailable Unavailable RAY, Casi ECHEVERRIA MD Unavailable Unavailable RAY, Casi ECHEVERRIA MD Unavailable Unavailable RAY, Casi ECHEVERRIA MD Unavailable Unavailable RAY, Casi ECHEVERRIA MD Unavailable Unavailable RAY, Casi ECHEVERRIA MD Unavailable Unavailable RAY, Casi ECHEVERRIA MD Unavailable Unavailable RAY, Casi ECHEVERRIA MD Unavailable Unavailable RAY, Casi ECHEVERRIA MD Unavailable Unavailable RAY, Casi ECHEVERRIA MD Unavailable Unavailable RAY, Casi ECHEVERRIA MD Unavailable Unavailable RAY, Casi ECHEVERRIA MD Unavailable Unavailable RAY, Casi ECHEVERRIA MD Unavailable Unavailable RAY, Casi ECHEVERRIA MD Unavailable Unavailable RAY, Casi ECHEVERRIA MD Unavailable Unavailable RAY, Casi ECHEVERRIA MD Unavailable Unavailable RAY, Casi ECHEVERRIA MD Unavailable Unavailable RAY, Casi ECHEVERRIA MD Unavailable Unavailable RAY, Casi ECHEVERRIA MD Unavailable Unavailable RAY, Casi ECHEVERRIA MD Unavailable Unavailable RAY, Casi ECHEVERRIA MD Unavailable Unavailable RAY, Casi ECHEVERRIA MD Unavailable Unavailable RAY, Casi ECHEVERRIA MD Unavailable Unavailable RAY, Casi ECHEVERRIA MD Unavailable Unavailable RAY, Casi ECHEVERRIA MD Unavailable Unavailable RAY, Casi ECHEVERRIA MD Unavailable Unavailable RAY, Casi ECHEVERRIA MD Unavailable Unavailable RAY, Casi ECHEVERRIA MD Unavailable Unavailable RAY, Casi ECHEVERRIA MD Unavailable Unavailable RAY, Casi ECHEVERRIA MD Unavailable Unavailable RAY, Casi ECHEVERRIA MD Unavailable Unavailable RAY, Casi ECHEVERRIA MD Unavailable Unavailable RAY, Casi ECHEVERRIA MD Unavailable Unavailable RAY, Casi ECHEVERRIA MD Unavailable Unavailable RAY, Casi ECHEVERRIA MD Unavailable Unavailable RAY, Casi ECHEVERRIA MD Unavailable Unavailable RAY, Casi ECHEVERRIA MD Unavailable Unavailable RAY, Casi ECHEVERRIA MD Unavailable Unavailable RAY, Casi ECHEVERRIA MD Unavailable Unavailable RAY, Casi ECHEVERRIA MD Unavailable Unavailable RAY, Casi ECHEVERRIA MD Unavailable Unavailable RAY, Casi ECHEVERRIA MD Unavailable Unavailable RAY, Casi ECHEVERRIA MD Unavailable Unavailable RAY, Casi ECHEVERRIA MD Unavailable Unavailable RAY, Casi ECHEVERRIA MD Unavailable Unavailable RAY, Casi ECHEVERRIA MD Unavailable Unavailable RAY, Casi ECHEVERRIA MD Unavailable Unavailable Re-disclosure Warning The records that you are about to access may contain information from federally-assisted alcohol or drug abuse programs. If such information is present, then the following federally mandated warning applies: This information has been disclosed to you from records protected by federal confidentiality rules (42 CFR part 2). The federal rules prohibit you from making any further disclosure of this information unless further disclosure is expressly permitted by the written consent of the person to whom it pertains or as otherwise permitted by 42 CFR part 2. A general authorization for the release of medical or other information is NOT sufficient for this purpose. The Federal rules restrict any use of the information to criminally investigate or prosecute any alcohol or drug abuse patient.The records that you are about to access may contain highly sensitive health information, the redisclosure of which is protected by Article 27-F of the [facility] Public Health law. If you continue you may have access to information: Regarding HIV / AIDS; Provided by facilities licensed or operated by the [facility] Office of Mental Health; or Provided by the [facility] Office for People With Developmental Disabilities. If such information is present, then the following [facility] mandated warning applies: This information has been disclosed to you from confidential records which are protected by state law. State law prohibits you from making any further disclosure of this information without the specific written consent of the person to whom it pertains, or as otherwise permitted by law. Any unauthorized further disclosure in violation of state law may result in a fine or [place] health [facility] sentence or both. A general authorization for the release of medical or other information is NOT sufficient authorization for further disc losure. Allergies and Adverse Reactions Type Description Substance Reaction Status Data Source(s ) No Known Drug Allergies No Known Drug Allergies [facility] Family History Family Member Name Family Member Gender Family Member Status Date o f Status Description Data Source(s) Unknown Male Problem MEDENT ([facility]) Encounters Encounter Providers Location Date Indications Data Source(s ) Unknown [address] [facility] [address] 08/07/2021 12:00:00 AM EDT eCW1 ([facility]) Outpatient [address] [facility] [place] [address] 08/06/2021 12:00:00 AM EDT eCW1 ([facility]) Outpatient Attender: Sammy Mosquera/Rod/Van/Jian villela 07/18/2021 10:10:00 AM EDT [facility] ([facility]) [place] [address] [facility] [place] [address] 07/04/2021 12:00:00 AM EDT eCW1 ([facility]) Unknown [address] [facility] [place] [address] 07/02/2021 12:00:00 AM EDT eCW1 ([facility]) [place] [address] [facility] [place] [address] 06/25/2021 12:00:00 AM EDT eCW1 ([facility]) Outpatient [address] [facility] [address] 06/11/2021 12:00:00 AM EDT eCW1 ([facility]) Unknown [address] [facility] [address] 05/31/2021 12:00:00 AM EDT eCW1 ([facility]) Emergency Attender: Eh Murray MDConsultant: JUWAN SOLIS MD 05/17/2021 12:40:00 PM EDT - 05/17/2021 03:32:00 PM EDT [facility] Patient discharged. Outpatient Attender: KEMI UNDERWOOD [facility] 05/13 02:20:00 PM EDT [facility] ([facility]) Outpatient Attender: KEMI UNDERWOOD PAConsultant: JUWAN SOLIS MD 05/13/2021 02:19:00 PM EDT - 05/13/2021 02:19:00 PM EDT [facility] OFFICE OUTPATIENT VISIT 15 MINUTES Attender: ETHAN GUTIÉRREZ NP Physical Therapy 02/26/2021 03:45:00 PM EDT [facility] ([facility]) Unknown [address] [facility] [place] [address] 02/21/2021 12:00:00 AM EDT eCW1 ([facility]) OFFICE OUTPATIENT VISIT 15 MINUTES Attender: ETHAN GUTIÉRREZ NP Physical Therapy 01/24/2021 03:15:00 PM EDT [facility] ([facility]) Outpatient [address] [facility] [address] 01/21/2021 12:00:00 AM EDT eCW1 ([facility]) Outpatient Attender: KEMI UNDERWOOD PAConsultant: JUWAN SOLIS MD 01/16/2021 03:02:00 PM EDT - 01/16/2021 03:02:00 PM EDT [facility] Outpatient Attender: [facility]I [facility] 01/16 03:00:00 PM EDT [facility] ([facility]) Outpatient Attender: ETHAN GUTIÉRREZ NP Physical Therapy 01:45:00 PM EDT [facility] ([facility]) Outpatient [address] [facility] [address] 01/01/2021 12:00:00 AM EDT eCW1 ([facility]) Unknown [address] [facility] [address] 12/17/2020 12:00:00 AM EST eCW1 ([facility]) Unknown [address] [facility] [address] 11/27/2020 12:00:00 AM EST eCW1 ([facility]) Outpatient [address] [facility] [address] 11/26/2020 12:00:00 AM EST eCW1 ([facility]) Outpatient [address] [facility] [address] 10/19/2020 12:00:00 AM EST eCW1 ([facility]) Outpatient [address] [facility] [address] 10/16/2020 12:00:00 AM EST eCW1 ([facility]) Unknown [address] [facility] [address] 09/24/2020 12:00:00 AM EST eCW1 ([facility]) Outpatient Attender: KEMI UNDERWOOD PAConsultant: JUWAN SOLIS MD 09/21/2020 01:45:00 PM EST - 09/21/2020 01:45:00 PM EST [facility] Outpatient Attender: [facility] 09/21 12:40:00 PM EST [facility] ([facility]) Unknown [address] [facility] [address] 09/11/2020 12:00:00 AM EST eCW1 ([facility]) Unknown [address] [facility] [address] 09/10/2020 12:00:00 AM EST eCW1 ([facility]) Outpatient [address] [facility] [address] 08/01/2020 12:00:00 AM EDT eCW1 ([facility]) Unknown [address] [facility] [address] 07/31/2020 12:00:00 AM EDT eCW1 ([facility]) Outpatient Attender: [facility] 06/21 02:00:00 PM EDT [facility] ([facility]) Outpatient Attender: KEMI Luna maravilla: Alphonso Viveros MDConsultant: JUWAN SOLIS MD 06/21/2020 01:49:00 PM EDT - 06/21/2020 01:49:00 PM EDT [facility] Immunizations Vaccine Date Status Description Data Source(s) COVID-19 VACC, MRNA(PFIZER)/PF 04/04/2021 12:00:00 AM EDT completed [facility] COVID-19 VACCINE Pfizer 04/04/2021 12:00:00 AM EDT completed [facility] Vaccine Series Complete: YESThis Data wa s Submitted to [facility] [employer]. COVID-19 VACC, MRNA(PFIZER)/PF 03/14/2021 12:00:00 AM EDT completed [facility] COVID-19 VACCINE Pfizer 03/14/2021 12:00:00 AM EDT completed [facility] Vaccine Series Complete: NOThis Data was Submitted to [facility] [employer]. influenza, recombinant, quadrIvalent,injectable, prese rvative free 10/19/2020 04:43:00 PM EST completed eCW1 ([facility]) influenza, recombinant, quadrIvalent,injectable, prese rvative free 10/19/2020 04:43:00 PM EST completed eCW1 ([facility]) influenza, recombinant, quadrIvalent,injectable, prese rvative free 10/19/2020 04:43:00 PM EST completed eCW1 ([facility]) influenza, recombinant, quadrIvalent,injectable, prese rvative free 10/19/2020 04:43:00 PM EST completed eCW1 ([facility]) influenza, recombinant, quadrIvalent,injectable, prese rvative free 10/19/2020 04:43:00 PM EST completed eCW1 ([facility]) influenza, recombinant, quadrIvalent,injectable, prese rvative free 10/19/2020 04:43:00 PM EST completed eCW1 ([facility]) influenza, recombinant, quadrIvalent,injectable, prese rvative free 10/19/2020 04:43:00 PM EST completed eCW1 ([facility]) influenza, recombinant, quadrIvalent,injectable, prese rvative free 10/19/2020 04:43:00 PM EST completed eCW1 ([facility]) influenza, recombinant, quadrIvalent,injectable, prese rvative free 10/19/2020 04:43:00 PM EST completed eCW1 ([facility]) influenza, recombinant, quadrIvalent,injectable, prese rvative free 10/19/2020 04:43:00 PM EST completed eCW1 ([facility]) influenza, recombinant, quadrIvalent,injectable, prese rvative free 10/19/2020 04:43:00 PM EST completed eCW1 ([facility]) influenza, recombinant, quadrIvalent,injectable, prese rvative free 10/19/2020 04:43:00 PM EST completed eCW1 ([facility]) influenza, recombinant, quadrIvalent,injectable, prese rvative free 10/19/2020 04:43:00 PM EST completed eCW1 ([facility]) influenza, recombinant, quadrIvalent,injectable, prese rvative free 10/19/2020 04:43:00 PM EST completed eCW1 ([facility]) Medications Medication Brand Name Start Date Product Form Dose Route Admi nistrative Instructions Pharmacy Instructions Status Indications Reaction Description Data Source(s) 0.005 % 06/02/2021 12:00:00 AM EDT drops 2 INSTILL ONE DROP IN EACH EYE IN THE EVENING INSTILL ONE DROP IN EACH EYE IN THE EVENING SOLD: 07/15/2021 [facility] 0.005 % 06/02/2021 12:00:00 AM EDT drops 2 INSTILL ONE DROP IN EACH EYE IN THE EVENING INSTILL ONE DROP IN EACH EYE IN THE EVENING SOLD: 06/06/2021 [facility] 2 mg 05/14/2021 12:00:00 AM EDT capsule 30 TAKE ONE CAPSULE BY MOUTH EVERY DAY AT BEDTIME WITH 5 MG CAPSULE FOR TOTAL OF 7 MG EVERY NIGHT AT BEDTIME MAXIMUM DAILY DOSE = 1 TAKE ONE CAPSULE BY MOUTH EVERY DAY AT B EDTIME WITH 5 MG CAPSULE FOR TOTAL OF 7 MG EVERY NIGHT AT BEDTIME MAXIMUM DAILY DOSE = 1 SOLD: 07/23/2021 [facility] 50 mg 05/14/2021 12:00:00 AM EDT capsule 90 TAKE ONE CAPSULE BY MOUTH THREE TIMES A DAY NEEDED MAXIMUM DAILY DOSE = 3 TAKE ONE CAPSULE BY MOUTH THREE TIMES A DAY NEEDED MAXIMUM DAILY DOSE = 3 SOLD: 07/23/2021 [facility] 50 mg 05/14/2021 12:00:00 AM EDT capsule 90 TAKE ONE CAPSULE BY MOUTH THREE TIMES A DAY NEEDED MAXIMUM DAILY DOSE = 3 TAKE ONE CAPSULE BY MOUTH THREE TIMES A DAY NEEDED MAXIMUM DAILY DOSE = 3 SOLD: 05/24/2021 [facility] 2 mg 05/14/2021 12:00:00 AM EDT capsule 30 TAKE ONE CAPSULE BY MOUTH EVERY DAY AT BEDTIME WITH 5 MG CAPSULE FOR TOTAL OF 7 MG EVERY NIGHT AT BEDTIME MAXIMUM DAILY DOSE = 1 TAKE ONE CAPSULE BY MOUTH EVERY DAY AT B EDTIME WITH 5 MG CAPSULE FOR TOTAL OF 7 MG EVERY NIGHT AT BEDTIME MAXIMUM DAILY DOSE = 1 SOLD: 06/24/2021 [facility] 50 mg 05/14/2021 12:00:00 AM EDT capsule 90 TAKE ONE CAPSULE BY MOUTH THREE TIMES A DAY NEEDED MAXIMUM DAILY DOSE = 3 TAKE ONE CAPSULE BY MOUTH THREE TIMES A DAY NEEDED MAXIMUM DAILY DOSE = 3 SOLD: 06/24/2021 [facility] 2 mg 05/14/2021 12:00:00 AM EDT capsule 30 TAKE ONE CAPSULE BY MOUTH EVERY DAY AT BEDTIME WITH 5 MG CAPSULE FOR TOTAL OF 7 MG EVERY NIGHT AT BEDTIME MAXIMUM DAILY DOSE = 1 TAKE ONE CAPSULE BY MOUTH EVERY DAY AT B EDTIME WITH 5 MG CAPSULE FOR TOTAL OF 7 MG EVERY NIGHT AT BEDTIME MAXIMUM DAILY DOSE = 1 SOLD: 05/24/2021 [facility] 5 mg 03/13/2021 12:00:00 AM EDT capsule 30 TAKE ONE CAPSULE BY MOUTH EVERY EVENING AT BEDTIME TAKE ONE CAPSULE BY MOUTH EVERY EVENING AT BEDTIME VAISHALI [facility] 5 mg 03/13/2021 12:00:00 AM EDT capsule 30 TAKE ONE CAPSULE BY MOUTH EVERY EVENING AT BEDTIME TAKE ONE CAPSULE BY MOUTH EVERY EVENING AT BEDTIME VAISHALI [facility] 5 mg 03/13/2021 12:00:00 AM EDT capsule 30 TAKE ONE CAPSULE BY MOUTH EVERY EVENING AT BEDTIME TAKE ONE CAPSULE BY MOUTH EVERY EVENING AT BEDTIME VAISHALI [facility] 40 mg 02/21/2021 12:00:00 AM EDT capsule,delayed release (DR/EC) 90 TAKE ONE CAPSULE BY MOUTH EVERY DAY TAKE ONE CAPSULE BY MOUTH EVERY DAY SOLD: 02/21/2021 [facility] 40 mg 02/21/2021 12:00:00 AM EDT capsule,delayed release (DR/EC) 90 TAKE ONE CAPSULE BY MOUTH EVERY DAY TAKE ONE CAPSULE BY MOUTH EVERY DAY SOLD: 05/24/2021 [facility] 2 mg 02/10/2021 12:00:00 AM EDT capsule 30 TAKE ONE CAPSULE BY MOUTH EVERY DAY AT BEDTIME WITH 5MG TO TOTAL 7MG TAKE ONE CAPSULE BY MOUTH EVERY DAY AT BEDTIME WITH 5MG TO TOTAL 7MG SOLD: 02/14/2021 [facility] 2 mg 02/10/2021 12:00:00 AM EDT capsule 30 TAKE ONE CAPSULE BY MOUTH EVERY DAY AT BEDTIME WITH 5MG TO TOTAL 7MG TAKE ONE CAPSULE BY MOUTH EVERY DAY AT BEDTIME WITH 5MG TO TOTAL 7MG SOLD: 03/14/2021 [facility] 2 mg 02/10/2021 12:00:00 AM EDT capsule 30 TAKE ONE CAPSULE BY MOUTH EVERY DAY AT BEDTIME WITH 5MG TO TOTAL 7MG TAKE ONE CAPSULE BY MOUTH EVERY DAY AT BEDTIME WITH 5MG TO TOTAL 7MG SOLD: 04/14/2021 [facility] 50 mg 01/16/2021 12:00:00 AM EDT capsule 90 TAKE ONE CAPSULE BY MOUTH THREE TIMES A DAY NEEDED TAKE ONE CAPSULE BY MOUTH THREE TIMES A DAY NEEDED SOLD: 03/26/2021 [facility] 50 mg 01/16/2021 12:00:00 AM EDT capsule 90 TAKE ONE CAPSULE BY MOUTH THREE TIMES A DAY NEEDED TAKE ONE CAPSULE BY MOUTH THREE TIMES A DAY NEEDED SOLD: 02/19/2021 [facility] 50 mg 01/16/2021 12:00:00 AM EDT capsule 90 TAKE ONE CAPSULE BY MOUTH THREE TIMES A DAY NEEDED TAKE ONE CAPSULE BY MOUTH THREE TIMES A DAY NEEDED SOLD: 01/20/2021 [facility] 0.4-0.3 % 01/10/2021 12:00:00 AM EDT drops 15 INSTILL ONE DROP INTO THE EYE FOUR TIMES A DAY INSTILL ONE DROP INTO THE EYE FOUR TIMES A DAY SOLD: 1 [facility] 0.4-0.3 % 01/10/2021 12:00:00 AM EDT drops 15 INSTILL ONE DROP INTO THE EYE FOUR TIMES A DAY INSTILL ONE DROP INTO THE EYE FOUR TIMES A DAY SOLD: 0 01/11/2021 [facility] 0.4-0.3 % 01/10/2021 12:00:00 AM EDT drops 15 INSTILL ONE DROP INTO THE EYE FOUR TIMES A DAY INSTILL ONE DROP INTO THE EYE FOUR TIMES A DAY SOLD: 0 06/06/2021 [facility] Polyethylene Glycol 400 4 MG/ML / Propyl thelma glycol 3 MG/ML Ophthalmic Solution [Systane] 0.4-0.3 % PROPYLENE GLYCOL/PEG 400 01/10/2021 12:00:00 AM EDT drops 15 INSTILL ONE DROP INTO THE EYE FOUR TIMES A DAY INSTILL ONE DROP INTO THE EYE FOUR TIMES A DAY SOLD: 02/14/2021 [facility] Polyethylene Glycol 400 4 MG/ML / Propyl thelma glycol 3 MG/ML Ophthalmic Solution [Systane] 0.4-0.3 % PROPYLENE GLYCOL/PEG 400 01/10/2021 12:00:00 AM EDT drops 15 INSTILL ONE DROP INTO THE EYE FOUR TIMES A DAY INSTILL ONE DROP INTO THE EYE FOUR TIMES A DAY SOLD: 03/14/2021 [facility] Polyethylene Glycol 400 4 MG/ML / Propyl thelma glycol 3 MG/ML Ophthalmic Solution 0.4-0.3 % PROPYLENE GLYCOL/PEG 400 01/10/2021 12:00:00 AM EDT drops 15 INSTILL ONE DROP INTO THE EYE FOUR TIMES A DAY INSTILL ONE DROP INTO THE EYE FOUR TIMES A DAY SOLD: 05/02/2021 [facility] 50 mcg (2,000 unit) 12/17/2020 12:00:00 AM EST tablet 30 TAKE ONE TABLET BY MOUTH EVERY DAY TAKE ONE TABLET BY MOUTH EVERY DAY SOLD: 01/20/2021 [facility] 50 mcg (2,000 unit) 12/17/2020 12:00:00 AM EST tablet 30 TAKE ONE TABLET BY MOUTH EVERY DAY TAKE ONE TABLET BY MOUTH EVERY DAY SOLD: 07/15/2021 [facility] 50 mcg (2,000 unit) 12/17/2020 12:00:00 AM EST tablet 30 TAKE ONE TABLET BY MOUTH EVERY DAY TAKE ONE TABLET BY MOUTH EVERY DAY SOLD: 06/06/2021 [facility] 50 mcg (2,000 unit) 12/17/2020 12:00:00 AM EST tablet 30 TAKE ONE TABLET BY MOUTH EVERY DAY TAKE ONE TABLET BY MOUTH EVERY DAY SOLD: 12/19/2020 [facility] 50 mcg (2,000 unit) 12/17/2020 12:00:00 AM EST tablet 30 TAKE ONE TABLET BY MOUTH EVERY DAY TAKE ONE TABLET BY MOUTH EVERY DAY SOLD: 05/02/2021 [facility] 50 mcg (2,000 unit) 12/17/2020 12:00:00 AM EST tablet 30 TAKE ONE TABLET BY MOUTH EVERY DAY TAKE ONE TABLET BY MOUTH EVERY DAY SOLD: 03/26/2021 [facility] 50 mcg (2,000 unit) 12/17/2020 12:00:00 AM EST tablet 30 TAKE ONE TABLET BY MOUTH EVERY DAY TAKE ONE TABLET BY MOUTH EVERY DAY SOLD: 02/19/2021 [facility] 0.005 % 12/12/2020 12:00:00 AM EST drops 2 INSTILL 1 DROP IN EACH EYE EACH EVENING INSTILL 1 DROP IN EACH EYE EACH EVENING SOLD: 12/14/2020 [facility] 0.005 % 12/12/2020 12:00:00 AM EST drops 2 INSTILL 1 DROP IN EACH EYE EACH EVENING INSTILL 1 DROP IN EACH EYE EACH EVENING SOLD: 05/10/2021 [facility] 0.005 % 12/12/2020 12:00:00 AM EST drops 2 INSTILL 1 DROP IN EACH EYE EACH EVENING INSTILL 1 DROP IN EACH EYE EACH EVENING SOLD: 01/11/2021 [facility] 0.005 % 12/12/2020 12:00:00 AM EST drops 2 INSTILL 1 DROP IN EACH EYE EACH EVENING INSTILL 1 DROP IN EACH EYE EACH EVENING SOLD: 04/11/2021 [facility] 0.005 % 12/12/2020 12:00:00 AM EST drops 2 INSTILL 1 DROP IN EACH EYE EACH EVENING INSTILL 1 DROP IN EACH EYE EACH EVENING SOLD: 03/05/2021 [facility] 5 mg 12/05/2020 12:00:00 AM EST capsule 30 TAKE ONE CAPSULE BY MOUTH EVERY DAY AT BEDTIME TAKE ONE CAPSULE BY MOUTH EVERY DAY AT BEDTIME SOLD: 021 [facility] 5 mg 12/05/2020 12:00:00 AM EST capsule 30 TAKE ONE CAPSULE BY MOUTH EVERY DAY AT BEDTIME TAKE ONE CAPSULE BY MOUTH EVERY DAY AT BEDTIME SOLD: 021 [facility] 5 mg 12/05/2020 12:00:00 AM EST capsule 30 TAKE ONE CAPSULE BY MOUTH EVERY DAY AT BEDTIME TAKE ONE CAPSULE BY MOUTH EVERY DAY AT BEDTIME SOLD: 021 [facility] 2 mg 11/12/2020 12:00:00 AM EST capsule 30 TAKE ONE CAPSULE BY MOUTH EVERY DAY AT BEDTIME WITH 5MG FOR TOTAL OF 7MG AT BEDTIME TAKE ONE CAPSULE BY MOUTH EVERY DAY AT BEDTIME WITH 5MG FOR TOTAL OF 7MG AT BEDTIME SOLD: 11/14/2020 [facility] 2 mg 11/12/2020 12:00:00 AM EST capsule 30 TAKE ONE CAPSULE BY MOUTH EVERY DAY AT BEDTIME WITH 5MG FOR TOTAL OF 7MG AT BEDTIME TAKE ONE CAPSULE BY MOUTH EVERY DAY AT BEDTIME WITH 5MG FOR TOTAL OF 7MG AT BEDTIME SOLD: 12/14/2020 [facility] 2 mg 11/12/2020 12:00:00 AM EST capsule 30 TAKE ONE CAPSULE BY MOUTH EVERY DAY AT BEDTIME WITH 5MG FOR TOTAL OF 7MG AT BEDTIME TAKE ONE CAPSULE BY MOUTH EVERY DAY AT BEDTIME WITH 5MG FOR TOTAL OF 7MG AT BEDTIME SOLD: 01/12/2021 [facility] 0.005 % 10/25/2020 12:00:00 AM EST drops 2 INSTILL 1 DROP INTO BOTH EYES IN THE EVENING INSTILL 1 DROP INTO BOTH EYES IN THE EVENING SOLD: 10/26/2020 [facility] Glucocard Expression Test - Glucocard Expression Test - 08/14 12:00:00 AM EST suspended Glucocard Expr ession Test - eCW1 (On License Of [facility]) Glucocard Expression Test - Glucocard Expression Test - 08/14 12:00:00 AM EST suspended Glucocard Expr ession Test - eCW1 (On License Of [facility]) Glucocard Expression Test - Glucocard Expression Test - 08/14 12:00:00 AM EST suspended Glucocard Expr ession Test - eCW1 (On License Of [facility]) Glucocard Expression Test - Glucocard Expression Test - 08/14 12:00:00 AM EST suspended Glucocard Expr ession Test - eCW1 (On License Of [facility]) Glucocard Expression Test - Glucocard Expression Test - 08/14 12:00:00 AM EST suspended Glucocard Expr ession Test - eCW1 (On License Of [facility]) Glucocard Expression Test - Glucocard Expression Test - 08/14 12:00:00 AM EST active Glucocard Express ion Test - eCW1 (On License Of [facility]) Glucocard Expression Test - Glucocard Expression Test - 08/14 12:00:00 AM EST suspended Glucocard Expr ession Test - eCW1 (On License Of [facility]) Glucocard Expression Test - Glucocard Expression Test - 08/14 12:00:00 AM EST suspended Glucocard Expr ession Test - eCW1 (On License Of [facility]) Glucocard Expression Test - Glucocard Expression Test - 08/14 12:00:00 AM EST suspended Glucocard Expr ession Test - eCW1 (On License Of [facility]) Glucocard Expression Test - Glucocard Expression Test - 08/14 12:00:00 AM EST suspended Glucocard Expr ession Test - eCW1 (On License Of [facility]) Glucocard Expression Test - Glucocard Expression Test - 08/14 12:00:00 AM EST suspended Glucocard Expr ession Test - eCW1 (On License Of [facility]) Glucocard Expression Test - Glucocard Expression Test - 08/14 12:00:00 AM EST suspended Glucocard Expr ession Test - eCW1 (On License Of [facility]) Glucocard Expression Test - Glucocard Expression Test - 08/14 12:00:00 AM EST active Glucocard Express ion Test - eCW1 (On License Of [facility]) Glucocard Expression Test - Glucocard Expression Test - 08/14 12:00:00 AM EST suspended Glucocard Expr ession Test - eCW1 (On License Of [facility]) Glucocard Expression Test - Glucocard Expression Test - 08/14 12:00:00 AM EST suspended Glucocard Expr ession Test - eCW1 (On License Of [facility]) Glucocard Expression Test - Glucocard Expression Test - 08/14 12:00:00 AM EST suspended Glucocard Expr ession Test - eCW1 (On License Of [facility]) Glucocard Expression Test - Glucocard Expression Test - 08/14 12:00:00 AM EST suspended Glucocard Expr ession Test - eCW1 (On License Of [facility]) Glucocard Expression Test - Glucocard Expression Test - 08/14 12:00:00 AM EST active Glucocard Express ion Test - eCW1 (On License Of [facility]) 150 mg 09/05/2020 12:00:00 AM EST tablet sustained-releas e 12 hr 180 TAKE ONE TABLET BY MOUTH TWICE A DAY TAKE ONE TABLET BY MOUTH TWICE A DAY SOLD: 09/07/2020 [facility] 5 mg 09/02/2020 12:00:00 AM EST capsule 30 TAKE ONE CAPSULE BY MOUTH AT BEDTIME TAKE ONE CAPSULE BY MOUTH AT BEDTIME SOLD: 11/07/2020 [facility] 5 mg 09/02/2020 12:00:00 AM EST capsule 30 TAKE ONE CAPSULE BY MOUTH AT BEDTIME TAKE ONE CAPSULE BY MOUTH AT BEDTIME SOLD: 09/02/2020 [facility] 5 mg 09/02/2020 12:00:00 AM EST capsule 30 TAKE ONE CAPSULE BY MOUTH AT BEDTIME TAKE ONE CAPSULE BY MOUTH AT BEDTIME SOLD: 10/08/2020 [facility] Naltrexone hydrochloride 50 MG Oral Tablet NALTREXONE HCL 08/03/2020 12:00:00 AM EDT tablet 30 START WITH 1/2 T ABLET BY MOUTH ONCE DAILY FOR 7 DAYS THEN INCREASE TO 1/2 TABLET TWO TIMES A DAY START WITH 1/2 TABLET BY MOUTH ONCE MICHEAL Y FOR 7 DAYS THEN INCREASE TO 1/2 TABLET TWO TIMES A DAY SOLD: 08/04/2020 [facility] 2 mg 08/03/2020 12:00:00 AM EDT capsule 30 TAKE ONE CAPSULE BY MOUTH AT BEDTIME WITH 5MG TAKE ONE CAPSULE BY MOUTH AT BEDTIME WITH 5MG SOLD: 08/04/20 [facility] Naltrexone hydrochloride 50 MG Oral Tablet NALTREXONE HCL 08/03/2020 12:00:00 AM EDT tablet 30 START WITH 1/2 T ABLET BY MOUTH ONCE DAILY FOR 7 DAYS THEN INCREASE TO 1/2 TABLET TWO TIMES A DAY START WITH 1/2 TABLET BY MOUTH ONCE MICHEAL Y FOR 7 DAYS THEN INCREASE TO 1/2 TABLET TWO TIMES A DAY SOLD: 10/08/2020 [facility] Naltrexone hydrochloride 50 MG Oral Tablet NALTREXONE HCL 08/03/2020 12:00:00 AM EDT tablet 30 START WITH 1/2 T ABLET BY MOUTH ONCE DAILY FOR 7 DAYS THEN INCREASE TO 1/2 TABLET TWO TIMES A DAY START WITH 1/2 TABLET BY MOUTH ONCE MICHEAL Y FOR 7 DAYS THEN INCREASE TO 1/2 TABLET TWO TIMES A DAY SOLD: 09/02/2020 [facility] 2 mg 08/03/2020 12:00:00 AM EDT capsule 30 TAKE ONE CAPSULE BY MOUTH AT BEDTIME WITH 5MG TAKE ONE CAPSULE BY MOUTH AT BEDTIME WITH 5MG SOLD: 09/13/20 [facility] 2 mg 08/03/2020 12:00:00 AM EDT capsule 30 TAKE ONE CAPSULE BY MOUTH AT BEDTIME WITH 5MG TAKE ONE CAPSULE BY MOUTH AT BEDTIME WITH 5MG SOLD: 10/15/19 [facility] 40 mg 08/01/2020 12:00:00 AM EDT capsule,delayed release (DR/EC) 90 TAKE ONE CAPSULE BY MOUTH EVERY DAY TAKE ONE CAPSULE BY MOUTH EVERY DAY SOLD: 08/02/2020 [facility] 40 mg 08/01/2020 12:00:00 AM EDT capsule,delayed release (DR/EC) 90 TAKE ONE CAPSULE BY MOUTH EVERY DAY TAKE ONE CAPSULE BY MOUTH EVERY DAY SOLD: 11/04/2020 [facility] 0.4-0.3 % 07/06/2020 12:00:00 AM EDT drops 15 INSTILL 1 DROP INTO AFFECTED EYE(S) FOUR TIMES A DAY INSTILL 1 DROP INTO AFFECTED EYE(S) FOUR TIMES A DAY SOLD: 09/02/2020 [facility] 0.4-0.3 % 07/06/2020 12:00:00 AM EDT drops 15 INSTILL 1 DROP INTO AFFECTED EYE(S) FOUR TIMES A DAY INSTILL 1 DROP INTO AFFECTED EYE(S) FOUR TIMES A DAY SOLD: 07/06/2020 [facility] 0.4-0.3 % 07/06/2020 12:00:00 AM EDT drops 15 INSTILL 1 DROP INTO AFFECTED EYE(S) FOUR TIMES A DAY INSTILL 1 DROP INTO AFFECTED EYE(S) FOUR TIMES A DAY SOLD: 10/08/2020 [facility] 0.4-0.3 % 07/06/2020 12:00:00 AM EDT drops 15 INSTILL 1 DROP INTO AFFECTED EYE(S) FOUR TIMES A DAY INSTILL 1 DROP INTO AFFECTED EYE(S) FOUR TIMES A DAY SOLD: 12/14/2020 [facility] 0.4-0.3 % 07/06/2020 12:00:00 AM EDT drops 15 INSTILL 1 DROP INTO AFFECTED EYE(S) FOUR TIMES A DAY INSTILL 1 DROP INTO AFFECTED EYE(S) FOUR TIMES A DAY SOLD: 08/02/2020 [facility] 0.4-0.3 % 07/06/2020 12:00:00 AM EDT drops 15 INSTILL 1 DROP INTO AFFECTED EYE(S) FOUR TIMES A DAY INSTILL 1 DROP INTO AFFECTED EYE(S) FOUR TIMES A DAY SOLD: 11/07/2020 [facility] 0.005 % 06/25/2020 12:00:00 AM EDT drops 2 INSTILL 1 DROP INTO BOTH EYES EVERY EVENING INSTILL 1 DROP INTO BOTH EYES EVERY EVENING SOLD: 11/19/2020 [facility] 0.005 % 06/25/2020 12:00:00 AM EDT drops 2 INSTILL 1 DROP INTO BOTH EYES EVERY EVENING INSTILL 1 DROP INTO BOTH EYES EVERY EVENING SOLD: 06/27/2020 [facility] 0.005 % 06/25/2020 12:00:00 AM EDT drops 2 INSTILL 1 DROP INTO BOTH EYES EVERY EVENING INSTILL 1 DROP INTO BOTH EYES EVERY EVENING SOLD: 10/08/2020 [facility] 0.005 % 06/25/2020 12:00:00 AM EDT drops 2 INSTILL 1 DROP INTO BOTH EYES EVERY EVENING INSTILL 1 DROP INTO BOTH EYES EVERY EVENING SOLD: 08/18/2020 [facility] 0.005 % 06/25/2020 12:00:00 AM EDT drops 2 INSTILL 1 DROP INTO BOTH EYES EVERY EVENING INSTILL 1 DROP INTO BOTH EYES EVERY EVENING SOLD: 09/13/2020 [facility] 0.005 % 06/25/2020 12:00:00 AM EDT drops 2 INSTILL 1 DROP INTO BOTH EYES EVERY EVENING INSTILL 1 DROP INTO BOTH EYES EVERY EVENING SOLD: 07/24/2020 [facility] 5 mg 06/04/2020 12:00:00 AM EDT capsule 30 TAKE ONE CAPSULE BY MOUTH EVERY DAY AT BEDTIME WITH 2 MG FOR A TOTAL OF 7 MG TAKE ONE CAPSULE BY MOUTH EVERY DAY AT BEDTIME WITH 2 MG FOR A TOTAL OF 7 MG SOLD: 07/06/2020 [facility] 5 mg 06/04/2020 12:00:00 AM EDT capsule 30 TAKE ONE CAPSULE BY MOUTH EVERY DAY AT BEDTIME WITH 2 MG FOR A TOTAL OF 7 MG TAKE ONE CAPSULE BY MOUTH EVERY DAY AT BEDTIME WITH 2 MG FOR A TOTAL OF 7 MG SOLD: 08/04/2020 [facility] 2 mg 05/04/2020 12:00:00 AM EDT capsule 30 TAKE ONE CAPSULE BY MOUTH EVERY DAY AT BEDTIME WITH 5 MG FOR A TOTAL OF 7 MG TAKE ONE CAPSULE BY MOUTH EVERY DAY AT BEDTIME WITH 5 MG FOR A TOTAL OF 7 MG SOLD: 07/06/2020 [facility] 50 mg 03/20/2020 12:00:00 AM EDT capsule 90 TAKE ONE CAPSULE BY MOUTH THREE TIMES A DAY TAKE ONE CAPSULE BY MOUTH THREE TIMES A DAY SOLD: 06/27/2020 [facility] 50 mcg (2,000 unit) 03/20/2020 12:00:00 AM EDT tablet 30 TAKE ONE TABLET BY MOUTH EVERY DAY TAKE ONE TABLET BY MOUTH EVERY DAY SOLD: 06/21/2020 [facility] 50 mcg (2,000 unit) 03/20/2020 12:00:00 AM EDT tablet 30 TAKE ONE TABLET BY MOUTH EVERY DAY TAKE ONE TABLET BY MOUTH EVERY DAY SOLD: 10/26/2020 [facility] 50 mcg (2,000 unit) 03/20/2020 12:00:00 AM EDT tablet 30 TAKE ONE TABLET BY MOUTH EVERY DAY TAKE ONE TABLET BY MOUTH EVERY DAY SOLD: 07/24/2020 [facility] 50 mcg (2,000 unit) 03/20/2020 12:00:00 AM EDT tablet 30 TAKE ONE TABLET BY MOUTH EVERY DAY TAKE ONE TABLET BY MOUTH EVERY DAY SOLD: 11/25/2020 [facility] 50 mcg (2,000 unit) 03/20/2020 12:00:00 AM EDT tablet 30 TAKE ONE TABLET BY MOUTH EVERY DAY TAKE ONE TABLET BY MOUTH EVERY DAY SOLD: 09/23/2020 [facility] 50 mcg (2,000 unit) 03/20/2020 12:00:00 AM EDT tablet 30 TAKE ONE TABLET BY MOUTH EVERY DAY TAKE ONE TABLET BY MOUTH EVERY DAY SOLD: 08/26/2020 [facility] Naltrexone hydrochloride 50 MG Oral Tablet NALTREXONE HCL 02/03/2020 12:00:00 AM EDT tablet 30 START WITH 1/2 T ABLET BY MOUTH ONCE DAILY FOR 7 DAYS THEN INCREASE TO 1/2 TABLET TWICE DAILY THEREAFTER START WITH 1/2 TABLET BY MOUTH ONCE DAILY FOR 7 DAYS THEN INCREASE TO 1/2 TABLET TWICE DAILY THEREAFTER SOLD: 07/06/2020 [facility] 20 mg 10/10/2019 12:00:00 AM EST capsule,delayed release (DR/EC) 30 TAKE ONE CAPSULE BY MOUTH EVERY DAY TAKE ONE CAPSULE BY MOUTH EVERY DAY SOLD: 07/16/2020 [facility] Insurance Providers Payer name Policy type / Coverage type Policy ID Covered democrat ID Covered democrat's relationship to de jesus Policy De Jesus Plan Information [facility] COMMUNITY PLAN [id number] 18 [id number] [facility] COMMUN PLAN [id number] [facility] Community Plan Commercial [id number] Self [id number] [facility] I [id number] Self [id number] [facility] I [id number] Self [id number] [facility] COMMUNITY [facility] [id number] 18 [id number] ANSI-Medicaid [id number] ANSI-Medicaid [id number] ANSI-Medicaid [id number] [facility] Health Maintenance Organization (HMO) [id number] Self [id number] ANSI-Medicaid [id number] [facility] COMMUNITY PLAN XIX -RECURRING [id number] 18 [id number] ANSI-Medicaid [id number] ANSI-Medicaid [id number] ANSI-Medicaid [id number] ANSI-Medicaid [id number] ANSI-Medicaid [id number] ANSI-Medicaid [id number] ANSI-Medicaid [id number] [facility] O [id number] S [id number] ANSI-Medicaid [id number] ANSI-Medicaid [id number] ANSI-Medicaid [id number] ANSI-Medicaid [id number] ANSI-Medicaid [id number] ANSI-Medicaid [id number] ANSI-Medicaid [id number] ANSI-Medicaid [id number] [facility] COMMUNITY PLAN XIX [id number] 18 [id number] [facility] Health Maintenance Organization (HMO) [id number] Self [id number] [facility] Community Plan Commercial [id number] Self [id number] [facility] [id number] 18 [id number] [facility] COMMUNITY PLAN MCDHMO [id number] SP [id number] [facility] COMMUNITY PLAN MCDHMO [id number] SP [id number] [facility] [id number] SP [id number] [employer] XIX -HMO [id number] 18 [id number] [facility] COMMUNITY PLAN MCDHMO [id number] SP [id number] [facility] COMMUNITY PLAN MCDHMO [id number] SP [id number] MEDICAID [id number] SP [id number] [facility] COMMUNITY PLAN MCDO [id number] SP [id number] [facility] COMMUNITY PLAN MCDO [id number] SP [id number] [facility] COMMUNITY PLAN [facility] [id number] SP [id number] [facility] AMERICHOICE XIX -HMO [id number] 18 [id number] Problems, Conditions, and Diagnoses Code Display Name Description Problem Type Effective Dates Data Source(s) L41683 Personal history of nicotine dependence Personal history of nicotine dependence Diagnosis 05/17/2021 12:40:00 PM EDT [facility] [id number] CONTACT WITH AND SUSPECTED EXPOSURE TO C OVID-19 CONTACT WITH AND SUSPECTED EXPOSURE TO COVID-19 Diagnosis 05/17/2021 12:40:00 PM EDT [facility] J029 Acute pharyngitis, unspecified Acute pharyngitis, unsp ecified Diagnosis 05/17/2021 12:40:00 PM EDT [facility] 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 Borderline i ntellectual functioning Diagnosis 01/16/2021 03:02:00 PM EDT [facility] F438 Other reactions to severe stress Other reactions to severe stress Diagnosis 01/16/2021 03:02:00 PM EDT [facility] 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, in remission Alcohol depende nce, in remission Diagnosis 06/21/2020 01:49:00 PM EDT [facility] J35.1 [id number] Swelling of tonsil Problem 06/30/2021 12:00: 00 AM EDT [email or web address] (On License Of [facility]) Surgeries/Procedures Procedure Description Date Indications Data Source(s) OFFICE OUTPATIENT NEW 45 MINUTES 07/18/2021 12:00:00 A M EDT [facility] ([facility], ) OFFICE OUTPATIENT VISIT 25 MINUTES 05/13/2021 12:00:00 AM EDT [facility] ([facility]) OFFICE OUTPATIENT VISIT 25 MINUTES 01/16/2021 12:00:00 AM EDT [facility] ([facility]) Immunization: Flublok Quadrivalent (18 years & older) 0.5mL IM (Influenza) 10/19/2020 12:00:00 AM EST eCW1 ([facility]) Results ID Date Data Source [id number] 05/17/2021 12:40:00 PM EDT [facility] 1 OrderSheet [facility] Emergency Department [address] [place] [address] Phone #: [phone] 05/17/2021 12:23 Patient: SANCHEZ PARISH Sex: M : 1990 Age: 31yWEIGHT:162.3 kg HEIGHT:69 inches BMI:52.9ALLERGIES: No Known Drug AllergyCHIEF COMPLAINT: sore throatDIAGNOSIS: PharyngitisLAB ORDERSOrder Description Priority Entered Acknowledged InitialedCORONAVIRUS STAT 14:03 05/17/2021 14:44 DorisCOVID-19 Laurent TANNER; Kacey VALDEZ(Symptomatic asDefined by CDC)(05/17/2021) (FirstTest) (NotHospitalized) (Not) (NotResident inCongregate CareSetting) (NotEmployed inHealthcare Setting)Rapid Strep Screen STAT 14:03 05/17/2021 14:44 Carley TANNER; Kacey VALDEZDIAGNOSTIC STUDY ORDERSOrder Description Priority Entered Acknowledged InitialedMEDICATION/IV/DRIP/FLUID ORDERSOrder Description Priority Entered Acknowledged InitialedGENERAL ORDERSOrder Description Priority Entered Acknowledged Initialed[Electronically signed by Carley Erazo RN (15:41 05/17/2021)][Electronically signed by Laurent Arnett (16:01 05/17/2021)][Electronically locked by Carley Erazo RN (15:41 05/17/2021)] Name Value Range Interpretation Code Description [facility] Supporting Document(s) ID Date Data Source [id number] 05/17/2021 12:40:00 PM EDT [facility] 1 Medication Reconciliation Report [facility] Emergency Department [address] [place] [address] Phone #: ext- [phone] 05/17/2021 12:23 Patient: SANCHEZ PARISH Sex: M : 1990 Age: 31yWeight: 162.3 kgHeight/Length: 69 in.BMI: 52.9ALLERGIES: No Known Drug AllergyThe patient's Home Medications are listed below:CONTINUE TAKING THE FOLLOWING MEDICATIONS: Gabapentin Oral hydrOXYzine HCl Oral Ibuprofen Oral Prazosin HCl OralThe source(s) of the original Home Medication information:Not obtained.The following Medications were given to the patient in the Emergency Department:None.The following Medications were prescribed to the patient:None. Name Value Range Interpretation Code Description Data [facility](s) Supporting Document(s) ID Date Data Source [id number] 05/17/2021 12:40:00 PM EDT [facility] 1 Medication Administration Record [facility] Emergency Department [address] [place] [address] Phone #: ext- [phone] 03/2021 12:23 Patient: SANCHEZ PARISH Sex: M : 1990 Age: 31yWeight: 162.3 kgHeight/Length: 69 inBMI: 52.9ALLERGIES: No Known Drug AllergyDate/Time Medication Administered Medication Ordered Name Value Range Interpretation Code Description Data Fang rce(s) Supporting Document(s) ID Date Data Source [id number] 05/17/2021 12:40:00 PM EDT [facility] 1 General Instructions [facility] Emergency Department [address] [place] [address] Phone #: ext- [phone] 05/17/2021 12:23 Patient: SANCHEZ PARISH Sex: M : 1990 Age: 31y Acute viral pharyngitis.INSTRUCTIONS No strenuous activity until better. Do not work for three days. Drink plenty of fluids for the next 48 hours as needed. Do not smoke. No alcohol. (self quarantine at home until COVID 19 test results given to you by [facility]). Warnings: Further evaluation is necessary. It is very important to follow up with a healthcare provider. GENERAL WARNINGS: Return or contact your physician immediately if your condition worsens or changes unexpectedly, if not improving as expected, or if other problems arise. Specifically return if pain, vomiting, bleeding, breathing difficulty or fever. Your Current Medications: Your current home medications have been reviewed. CONTINUE TAKING THE FOLLOWING MEDICATIONS: Gabapentin Oral. hydrOXYzine HCl Oral. Ibuprofen Oral. Prazosin HCl Oral. Follow-up: Follow up with your healthcare provider in three days even if well. Call for an appointment. Reason for referral: evaluation. Summary of care provided to patient via paper. Understanding of the discharge instructions verbalized by patient. Expected course of illness, discharge instructions, activity level, follow-up appointment and risks and benefits of treatment reviewed with patient and understanding verbalized. Agrees to plan of care. ADDITIONAL INFORMATIONAcute Viral Pharyngitis (Sore Throat) 2 General Instructions [facility] Emergency Department [address] [place] [address] Phone #: ext- [phone] 05/17/2021 12:23 Patient: SANCHEZ PARISH Sex: M : 1990 Age: 31yYou or your child have a sore throat (pharyngitis). This infection is caused by a virus. It can causethroat pain that is worse when swallowing, aching all over, headache, and fever. The infection may bespread by coughing, kissing, or touching others after touching your mouth or nose. Antibioticmedicines don't work against viruses. They are not used for treating this illness.Home care If symptoms are severe, you or your child should rest at home. Return to work or school when you, or your child, feel well enough. You or your child should drink plenty of fluids to prevent dehydration. Adults, and children 5 years and older, can use throat lozenges or numbing throat sprays to help reduce pain. Gargling with warm salt water will also help reduce throat pain. Dissolve /2 3 General Instructions [facility] Emergency Department [address] [place] [address] Phone #: ext- [phone] 05/17/2021 12:23 Patient: SANCHEZ PARISH Sex: M : 1990 Age: 31y teaspoon of salt in 1 glass of warm water. Children can sip on juice or an ice pop. Children 5 years and older can also suck on a lollipop or hard candy. (Hard candy and lozenges can be a choking hazard in children younger than 5 years.) Don't eat salty or spicy foods or give them to your child. These can be irritating to the throat.Medicines for a child: You can give your child acetaminophen for fever, fussiness, or discomfort. Inbabies over 6 months of age, you may use ibuprofen as well as acetaminophen. If your child haschronic liver or kidney disease or ever had a stomach ulcer or gastrointestinal bleeding, talk with yourchild's healthcare provider before giving these medicines. Aspirin should never be used by any childunder 18 years of age who has a fever. It may cause severe liver damage and . Don't give yourchild any other medicine without first asking your child's healthcare provider, especially the first time.Medicines for an adult: You may use acetaminophen, naproxen, or ibuprofen to control pain orfever, unless another medicine was prescribed for this. If you have chronic liver or kidney disease orever had a stomach ulcer or gastrointestinal bleeding, talk with your healthcare provider before usingthese medicines.Follow-up careFollow up with a healthcare provider or as advised if you or your child are not getting better over thenext week.When to get medical adviceCall your healthcare provider right away if any of these occur: Fever (see Fever and children, below) New or worsening ear pain, sinus pain, or headache Painful lumps in the back of neck Stiff neck Lymph nodes are getting larger Can't open mouth wide due to throat pain New rash Other symptoms are getting worseCall 911Call 911 or get medical care right away if any of these occur: 4 General Instructions [facility] Emergency Department [address] [place] [address] Phone #: ext- [phone] 05/17/2021 12:23 Patient: SANCHEZ PARISH Sex: M : 1990 Age: 31y Trouble breathing or noisy breathing Muffled voice Can't swallow liquids, a lot of drooling, or any other symptoms that may mean worsening swelling in the throat Signs of dehydration such as very dark urine or no urine, sunken eyes, dizzinessFever and childrenUse a digital thermometer to check your child's temperature. Don't use a mercury thermometer.There are different kinds and uses of digital thermometers. They include: Rectal. For children younger than 3 years, a rectal temperature is the most accurate. Forehead (temporal). This works for children age 3 months and older. If a child under 3 months old has signs of illness, this can be used for a first pass. The provider may want to confirm with a rectal temperature. Ear (tympanic). Ear temperatures are accurate after 6 months of age, but not before. Armpit (axillary). This is the least reliable but may be used for a first pass to check a child of any age with signs of illness. The provider may want to confirm with a rectal temperature. Mouth (oral). Don't use a thermometer in your child's mouth until he or she is at least 4 years old.Use the rectal thermometer with care. Follow the product maker's directions for correct use. Insert itgently. Label it and make sure it's not used in the mouth. It may pass on germs from the stool. If youdon't feel OK using a rectal thermometer, ask the healthcare provider what type to use instead. Whenyou talk with any healthcare provider about your child's fever, tell him or her which type you used.Below are guidelines to know if your young child has a fever. Your child's healthcare provider maygive you different numbers for your child. Follow your provider's specific instructions.Fever readings for a baby under 3 months old: First, ask your child's healthcare provider how you should take the temperature. Rectal or forehead: 100.4F (38C) or higher Armpit: 99F (37.2C) or higherFever readings for a child age 3 months to 36 months (3 years): Rectal, forehead, or ear: 102F (38.9C) or higher Armpit: 101F (38.3C) or higher 5 General Instructions [facility] Emergency Department [address] [place] [address] Phone #: ext- [phone] 05/17/2021 12:23 Patient: SANCHEZ PARISH Sex: M : 1990 Age: 31yCall the healthcare provider in these cases: Repeated temperature of 104F (40C) or higher in a child of any age Fever of 100.4 or higher in baby younger than 3 months Fever that lasts more than 24 hours in a child under age 2 Fever that lasts for 3 days in a child age 2 or older [id number] [employer]. [address] [place] [address]. All rights reserved. This information is not intended as asubstitute for professional medical care. Always follow your healthcare professional's instructions. Prevention steps for People with confirmed or suspected COVID-19 (including persons under investigation) who do not need to be hospitalized And People with confirmed COVID-19 who were hospitalized and determined to be medically stable to go home Your healthcare provider and public health staff will evaluate whether you can be cared for at home. If it isdetermined that you do not need to be hospitalized and can be isolated at home, you will be monitored by staff fromyour local or state health department. You should follow the prevention steps below until a healthcare provider [facility] or state health department says you can return to your normal activities. Stay home except to get medical care People who are mildly ill with COVID-19 are able to isolate at home during their illness. You should restrict activities outside yourhome, except for getting medical care. Do not go to work, school, or public areas. Avoid using public transportation, ride-sharing, ortaxis. Separate yourself from other people and animals in your home People: As much as possible, you should stay in a specificroom and away from other people in your home. Also, you should use a separate bathroom, if available.Animals: You should restrict contact with pets and other animals while you are sick with COVID-19, just like you would around otherpeople. Although there have not been reports of pets or other animals becoming sick with COVID-19, it is still recommended thatpeople sick with COVID-19 limit contact with animals until more information is known about the virus. When possible, have anothermember of your household care for your animals while you are sick. If you are sick with COVID-19, avoid contact with your pet,including petting, snuggling, being kissed or licked, and sharing food. If you must care for your pet or be around animals while you aresick, wash your hands before and after you interact with pets and wear a facemask. See https://www.cdc.gov/coronavirus/2019-ncov/faq.html#4135-gUdV-gdy-animals for m ore information. Call ahead before visiting your doctor If you have a medical appointment, call the healthcare provider and tell them that you have or may have COVID-19. This will helpthe healthcare provider's office take steps to keep other people from getting infected or exposed. Wear a facemask You should wear a facemask when you are around other people {e.g., sharing a room or vehicle} or pets and before you enter ahealthcare provider's office. If you are not able to wear a facemask {for example, because it causes trouble breathing}, thenpeople who live with you should not stay in the same room with you, or they should wear a facemask if they enter your room. 6 General Instructions [facility] Emergency Department [address] [place] [address] Phone #: ext- [phone] 05/17/2021 12:23 Patient: SANCHEZ PARISH Sex: M : 1990 Age: 31yCover your coughs and sneezesCover your mouth and nose with a tissue when you cough or sneeze. Throw used tissues in a lined trash can. Immediately washyour hands with soap and water for at least 20 seconds or, if soap and water are not available, clean your hands with analcohol-based hand exercise instructor that contains at least 60% alcohol.Clean your hands oftenWash your hands often with soap and water for at least 20 seconds, especially after blowing your nose, coughing, or sneezing;going to the bathroom; and before eating or preparing food. If soap and water are not readily available, use an alcohol-based handsanitizer with at least 60% alcohol, covering all surfaces of your hands and rubbing them together until they feel dry.Soap and water are the best option if hands are visibly dirty. Avoid touching your eyes, nose, and mouth with unwashedhands.Flu Like Symptoms / Coronavirus Exposure - 30a Page 1 of 2Avoid sharing personal household itemsYou should not share dishes, drinking glasses, cups, eating utensils, towels, or bedding with other people or pets in yourhome. After using these items, they should be washed thoroughly with soap and water.Clean all "high-touch" surfaces everydayHigh touch surfaces include counters, tabletops, doorknobs, bathroom fixtures, toilets, phones, keyboards, tablets, and bedsidetables. Also, clean any surfaces that may have blood, stool, or body fluids on them. Use a household cleaning spray or wipe,according to the label instructions.Labels contain instructions for safe and effective use of the cleaning product including precautions you should take when applyingthe product, such as wearing gloves and making sure you have good ventilation during use of the product.Monitor your symptomshttps://www.tsystem.com/index.php Seek prompt medical attention if your illness is worsening {e.g., difficulty breathing}. Before seeking care, call your healthcareprovider and tell them that you have, or are being evaluated for, COVID-19. Put on a facemask before you enter the facility.These steps will help the healthcare provider's office to keep other people in the office or waiting room from getting infected orexposed. Ask your healthcare provider to call the local or state health department. Persons who are placed under activemonitoring or facilitated self-monitoring should follow instructions provided by their local health department or occupational healthprofessionals, as appropriate. When working with your local health department check their available hours.If you have a medical emergency and need to call 911, notify the dispatch personnel that you have, or are being evaluated forCOVID-19. If possible, put on a facemask before emergency medical services arrive.Discontinuing home isolationPatients with confirmed COVID-19 should remain under home isolation precautions until the risk of secondary transmission toothers is thought to be low. The decision to discontinue home isolation precautions should be made on a pdur-yn-btir basis, inconsultation with healthcareproviders and state and local health departments.Contacts 2020 Personal Development BureauOnline informationhttps://www.cdc.gov/coronavirus/2019- ncov/about/index.html 7 General Instructions [facility] Emergency Department [address] [place] [address] Phone #: ext- [phone] 05/17/2021 12:23 Patient: SANCHEZ PARISH Sex: M : 1990 Age: 31y Content source: National Center for Immunization and Respiratory Diseases (NCIRD), Division of Viral Diseases Recommended precautions for household members, intimate partners, and caregivers in a nonhealthcare setting1 of A patient with symptomatic laboratory-confirmed COVID-19 or A patient under investigationHousehold members, intimate partners, and caregivers in a nonhealthcare setting may have close contact2 with aperson with symptomatic, laboratory-confirmed COVID-19 or a person under investigation. Close contacts shouldmonitor their health; they should call their healthcare provider right away if they develop symptoms suggestive of COVID-19 {e.g., fever, cough, shortness of breath} {see Interim [place] Guidance for Risk Assessment and Public Health Management of Persons with Potential Coronavirus Disease 2019 {COVID-19} Exposure in Travel-associated or Community Settings.}Close contacts should also follow these recommendations: Make sure that you understand and can help the patient follow their healthcare provider's instructions for medication{s} and care. You should help the patient with basic needs in the home and provide support for getting groceries, prescriptions, and other personal needs. Monitor the patient's symptoms. If the patient is getting sicker, call his or her healthcare provider and tell them that the patient has laboratory-confirmed COVID-19. This will help the healthcare provider's office take steps to keep other people in the office or waiting room from getting infected. Ask the healthcare provider to call the local or [facility] health department for additional guidance. If the patient has a medical emergency and you need to call 911, notify the dispatch personnel that the patient has, or is being evaluated for COVID-19. Household members should stay in another room or be from the patient as much as possible. Household members should use a separate bedroom and bathroom, if available. Prohibit visitors who do not have an essential need to be in the home. Household members should care for any pets in the home. Do not handle pets or other animals while sick. For more information, see COVID-19 and Animals. Make sure that shared spaces in the home have good air flow, such as by an air conditioner or an opened window, weather 8 General Instructions [facility] Emergency Department [address] [place] [address] Phone #: ext- [phone] 05/17/2021 12:23 Patient: SANCHEZ PARISH Sex: M : 1990 Age: 31y permitting. Perform hand hygiene frequently. Wash your hands often with soap and water for at least 20 seconds or use an alcohol-based hand exercise instructor that contains 60 to 95% alcohol, covering all surfaces of your hands and rubbing them together until they feel dry. Soap and water should be used preferentially if hands are visibly dirty. Avoid touching your eyes, nose, and mouth with unwashed hands. The patient should wear a facemask when around other people, except when unable {for example, because it causes trouble breathing}. You, as the caregiver should always wear a mask, regardless if the patient has one on or not whenever you are in the same room as the patient. Wear a disposable facemask and gloves when you touch or have contact with the patient's blood, stool, or body fluids, such as saliva, sputum, nasal mucus, vomit, urine. Throw out disposable f acemasks and gloves after using them. Do not reuse. When removing personal protective equipment, first remove and dispose of gloves. Then, immediately clean your hands with soap and water or alcohol-based hand exercise instructor. Next, remove and dispose of facemask, and immediately clean your hands again with soap and water or alcohol-based hand exercise instructor. Avoid sharing household items with the patient. You should not share dishes, drinking glasses, cups, eating utensils, towels, bedding, or other items. After the patient uses these items, you should wash them thoroughly {see below "Wash laundry thoroughly"}. Flu Like Symptoms / Coronavirus Exposure - 30a Page 2 of 2 Clean all "high-touch" surfaces, such as counters, tabletops, doorknobs, bathroom fixtures, toilets, phones, keyboards, tablets, and bedside tables, every day. Also, clean any surfaces that may have blood, stool, or body fluids on them. Use a household cleaning spray or wipe, according to the label instructions. Labels contain instructions for safe and effective use of the cleaning product including precautions you should take when applying the product, such as wearing gloves and making sure you have good ventilation during use of the product. Wash laundry thoroughly. Immediately remove and wash clothes or bedding that have blood, stool, or body fluids on them. Wear disposable gloves while handling soiled items and keep soiled items away from your body. Clean your hands {with soap and water or an alcohol-based hand exercise instructor} immediately after removing your gloves. https://www.[employer]/index.php Read and follow directions on labels of laundry or clothing items and detergent. In general, using a normal laundry detergent according to washing machine instructions and dry thoroughly using the warmest temperatures recommended on the clothing label. Place all used disposable gloves, facemasks, and other contaminated items in a lined container before disposing of them with other household waste. Clean your hands {with soap and water or an alcohol-based hand exercise instructor} immediately after handling these items. Soap and water should be used preferentially if hands are visibly dirty. Discuss any additional questions with your state or local health department or healthcare provider. Check available hours when contacting your local health department.Contacts 2020 [employer].Online informationhttps://www.cdc.gov/coronavirus/2019-ncov/about/index.html 9 General Instructions [facility] Emergency Department [address] [place] [address] Phone #: ext- [phone] 05/17/2021 12:23 Patient: SANCHEZ PARISH Sex: M : 1990 Age: 31yContent source: National Center for Immunization and Respiratory Diseases (NCIRD), Division of Viral DiseasesFootnotes 1Home healthcare personnel should refer to I horace Infection Prevention and Control Recommendations for Patients with Known or Patients Under Investigationfor Coronavirus Disease 2019 (COVID-19) in a Healthcare Setting. 2Close contact is defined as-1. being within approximately 6 feet (2 meters) of a COVID-19 case for a prolonged period of time; close contact can occur while caring for, living with, visiting, or sharing a health care waiting area or room with a COVID-19 case - or -2. having direct contact with infectious secretions of a COVID-19 case (e.g., being coughed on You have been given the following additional information: Pharyngitis, Viral COVID-19 No strenuous activity until better. Do not work for three days.(Electronically signed by CIRO Cisneros 05/17/2021 16:01) Name Value Range Interpretation Code Description Data Fang rce(s) Supporting Document(s) ID Date Data Source [id number] 05/17/2021 12:40:00 PM EDT [facility] 1 Clinical Report - Nurses [facility] Emergency Department [address] [place] [address] Phone #: ext- [phone] 05/17/2021 12:23 Patient: SANCHEZ PARISH Sex: M : 1990 Age: 31yTRIAGEArrived by private vehicle. Historian: patient.Acuity: LEVEL 4.Chief Complaint: SORE THROAT.Alert. No acute distress.The patient has had a hoarse voice and muffled voice. This is a new problem. 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 SEPSIS SCREEN NEGATIVE.No suspected or confirmed signs of infection present. --13:15 05/17/21 Fareed JanuaryTimoteo13:05 05/17/21. BP: 123/84. MAP: 97. HR: 103. RR: 20. O2 saturation: 95%. Temp: 97.8 F. Pain levelnow: 8/10. (throat). --13:15 05/17/21 Gill Guerrier R.N.Triage time: 13:05 05/17/2021.13:15 05/17/21. --13:16 05/17/21 Gill Guerrier R. N.Weight: 162.3 kg. Height/Length: 69 inches. BMI: 52.9. --13:05 05/17/21 Carley Erazo RN.MedicationshydrOXYzine HCl Oral. --13:05/17/21 Fareed GillDanielle. Gabapentin Oral. --13:05/17/21 Gill Guerrier R.N. Prazosin HCl Oral. --13:08 05/17/21 Gill Guerrier R.N. Ibuprofen Oral. --13:05/17/21 Gill Guerrier R.N.AllergiesNo Known Drug Allergy. --13:10 05/17/21 Gill Guerrier R.N.PROBLEMS:Depression.Bipolar Disorder.Anxiety Reaction.Seizure Disorder.Mental Illness.Panic Attack. --15:37 05/17/21 Carley Erazo RN. 2 Clinical Report - Nurses [facility] Emergency Department [address] [place] [address] Phone #: ext- [phone] 05/17/2021 12:23 Patient: SANCHEZ PARISH Sex: M : 1990 Age: 31y ADDITIONAL SURGERIES: no known surgeries. History SOCIAL HX: Former smoker. Patient is a recovering alcoholic. Is a recovering addict. He was offered HIV testing but declined and hepatitis C testing but declined. SELF HARM ASSESSMENT: Self harm assessment was performed. The patient answered "no" to the question(s) "Do you have thoughts of harming or killing yourself?" and "Have you recently had thoughts about harming or killing others?". ABUSE ASSESSMENT: Abuse assessment. No suspicion of abuse. NUTRITIONAL RISK ASSESSMENT: The nutritional risk assessment revealed no deficiencies. FUNCTIONAL ASSESSMENT: Functional assessment: no impairments noted. LEARNING NEEDS ASSESSMENT: The learning needs assessment revealed no barriers. FALL RISK ASSESSMENT: Fall risk assessment completed. No risk factors identified. SKIN INTEGRITY ASSESSMENT: Skin integrity risk assessment completed. No skin integrity risk identified. --13:15 05/17/21 Gill Guerrier R.N. 13:05 05/17/21. SOCIAL HX: The patient has not traveled outside the [place] Infectious disease exposure: No infectious disease exposure. The patient was not exposed to Coronavirus. (Denies travel). Patient is not a known carrier of tuberculosis, hepatitis, HIV, MRSA or VRE. Patient is not a known carrier of CRE. --15:38 05/17/21 Carley Erazo RN.PHYSICAL UGCKNYPJRP93:30 05/17/21. Ambulatory to room.GENERAL / NEURO / PSYCH: Alert. Oriented X 4. Appears in no acute distress.HEENT: Pharyngeal erythema. Voice within normal limits. Mucous membranes are pink.RESPIRATORY: Respirations not labored.SKIN: Skin is warm and dry. --15:33 05/17/21 Carley Erazo RN.NURSING PROGRESS NOTES13:05/17/21. Two patient identifiers checked. Bed placed in lowest position. Brakes of bed on.Patient ready for evaluation- ED physician and PA notified. --15:32 05/17/21 Carley Erazo RN 14:40 05/17/21. Patient ID band checked for patient name and birthdate: patient confirmed. Throat swab obtained by nurse for rapid strep; labeled in the presence of the patient and sent to lab. --15:34 05/17/21 3 Clinical Report - Nurses [facility] Emergency Department [address] [place] [address] Phone #: ext- [phone] 05/17/2021 12:23 Patient: SANCHEZ PARISH Sex: M : 1990 Age: 31y Carley Erazo RN 14:40 05/17/21. Patient ID band checked for patient name and birthdate: patient confirmed. COVID-19 specimen obtained by RN via nasopharyngeal swab. Labeled in the presence of the patient and sent to lab. --15:35 05/17/21 Carley Erazo RN 15:32 05/17/21. Patient identifiers checked. Call light placed in reach. Bed placed in lowest position. Brakes of bed on. --15:34 05/17/21 Carley Erazo RN.DISPOSITION / DISCHARGE 15:28 05/17/21. BP: 153/94. MAP: 113. HR: 92. RR: 16. O2 saturation: 98%. Temp: 97.1 F. Pain level now: 0/10. --15:35 05/17/21 Carley Erazo RN 15:32 05/17/21. Condition at departure: stable. No learning barriers present. Discharge instructions provided and reviewed with the patient. Patient verbalized understanding. Written instructions provided in Mongolian. The patient was discharged home and accompanied by cardiac rehabilitation specialist. He left ambulatory and via private vehicle. [employer] Analyst driving. --15:36 05/17/21 Carley Erazo RN.Locked/Released at 05/17/2021 15:41 by Carley Eraoz RN Name Value Range Interpretation Code Description Data Fang rce(s) Supporting Document(s) ID Date Data Source [id number] 05/17/2021 12:40:00 PM EDT [facility] 1 Clinical Report - Physicians/Mid Levels [facility] Emergency Department [address] [place] [address] Phone #: ext- [phone] 05/17/2021 12:23 Patient: SANCHEZ PARISH Sex: M : 1990 Age: 31y Time Seen: 13:57 05/17/2021. Arrived- By private vehicle. Historian- patient.HISTORY OF PRESENT ILLNESS Chief Complaint: SORE THROAT. This started about 3 days ago; Sore throat, nasal congestion and mild cough x 3 days. Pain described as moderate. The patient has had a sore throat, nasal congestion and a nasal discharge. No mouth sores, ear pain, toothache or swollen jaw or face. No jaw pain or facial pain. Similar symptoms previously. Recent medical care: Not recently seen/assessed.REVIEW OF SYSTEMSNo fever, eye discomfort, difficulty breathing, chest pain or nausea. No diarrhea, abdominal pain, difficultywith urination, headache or fainting episodes. No joint pain, skin rash, enlarged lymph nodes or vomiting.The patient has had a mild nonproductive cough.PAST HISTORYSee nurses notes. Problems: Depression. HEAD INJURY WHEN YOUNGER. Ear Infection. Gastroesophageal Reflux Disease. Bipolar Disorder. Anxiety Reaction. Pharyngitis. Radius Fracture. Seizure Disorder. Mental Illness. Otitis Media. Panic Attack. Headache [RuleOut]. Seizure [RuleOut]. Migraine Headache [RuleOut]. Pharyngitis [RuleOut]. Medications: 2 Clinical Report - Physicians/Mid Levels [facility] Emergency Department [address] [place] [address] Phone #: ext- [phone] 05/17/2021 12:23 Patient: SANCHEZ PARISH Sex: M : 1990 Age: 31y Ibuprofen Oral. Prazosin HCl Oral. Gabapentin Oral. hydrOXYzine HCl Oral. Allergies: No Known Drug Allergy.SOCIAL HISTORYFormer smoker. Patient is a recovering alcoholic. Drug use: recovering addict.ADDITIONAL NOTESThe nursing notes have been reviewed with agreement regarding the chief complaint, HPI, ROS, PMH andpatient medications and allergies.PHYSICAL EXAMVital Signs: 05/17/2021 13:05 BP: 123/84. MAP: 97. HR: 103. RR: 20. O2 saturation: 95%. Temp: 97.8 F.Pain level now: 8/10. Have been reviewed as normal and appear to be correct. Blood pressure normal.Mean arterial pressure- normal. Tachycardic. Respiratory rate normal. Temperature normal. Oxygensaturation normal.Appearance: Alert. No acute distress.Head: Normal external inspection.Eyes: Pupils equal, round and reactive to light. Conjunctivae and eyelids normal.ENT: Ears normal. Nose normal. Moderate generalized pharyngeal erythema. No pharyngeal vesicles orulcerations. No right tonsillar exudate, right tonsillar swelling, left tonsillar exudate or left tonsillar swelling.Lips normal. Gums normal. No trismus present. Uvula midline.Neck: Normal inspection. Trachea midline. No adenopathy. Thyroid normal. Neck supple.CVS: Normal heart rate and rhythm. Heart sounds normal. Pulses normal.Respiratory: No respiratory distress. Painless inspiration. Breath sounds normal. Chest nontender.Abdomen: Soft and nontender. No organomegaly.Skin: Normal skin color. No rash. Normal skin turgor.Extremities: Extremities exhibit normal ROM. Extremities nontender.Neuro: Oriented X 3. No motor deficit. No sensory deficit. Reflexes normal.LABS, X-RAYS, AND EKGLaboratory Tests: Laboratory tests have been ordered, with results reviewed and considered in themedical decision making process. Rapid Strep Screen: (DANIEL: 05/17/2021 14:47) ( MsgRcvd 05/17/2021 15:10) Final results Test Result Flag Units (Reference) RAPID STREP NEGATIVE (NORMAL: NEGAT RAPID STREP REENTER NEGATIVE (NORMAL: NEGAT { PROCEDURAL CONTROL VALID ){ KIT LOT # [id number] ){ KIT EXP DATE 02/02/22 )The Strep A 2 assay utilizes isothermal nucleic acid amplification technology fothe qualitative detection of Group A Strep bacterial nucleic acid in throat swabspecimens.All negative test results no longer need to be confirmed with a culture. Follow-up testing requiring a culture is necessary if clinical symptoms persist, or inthe event of an acute rheumatic fever outbreak. A culture will need to beordered by the Qualified Medical Provider.Negative 3 Clinical Report - Physicians/Mid Levels [facility] Emergency Department [address] [place] [address] Phone #: ext- [phone] 05/17/2021 12:23 Patient: SANCHEZ PARISH Sex: M : 1990 Age: 31y results do not preclude infection with Group A Strep and should not beused as the sole basis for treatment..PROGRESS AND PROCEDURESDisposition: Discharged home in good and improved condition.Discharge decision based on the following: patient's condition is improved; patient is ambulatory; patient isactive; patient's exam is improved; improving condition on repeat evaluation; social support is adequate;transportation is available; follow-up is available; clinical impression is consistent with outpatient treatment.CLINICAL IMPRESSION Acute viral pharyngitis.INSTRUCTIONS No strenuous activity until better. Do not work for three days. Drink plenty of fluids for the next 48 hours as needed. Do not smoke. No alcohol. (self quarantine at home until COVID 19 test results given to you by JC). Warnings: Further evaluation is necessary. It is very important to follow up with a healthcare provider. GENERAL WARNINGS: Return or contact your physician immediately if your condition worsens or changes unexpectedly, if not improving as expected, or if other problems arise. Specifically return if pain, vomiting, bleeding, breathing difficulty or fever. Your Current Medications: Your current home medications have been reviewed. CONTINUE TAKING THE FOLLOWING MEDICATIONS: Gabapentin Oral. hydrOXYzine HCl Oral. Ibuprofen Oral. Prazosin HCl Oral. Follow-up: Follow up with your healthcare provider in three days even if well. Call for an appointment. Reason for referral: evaluation. Summary of care provided to patient via paper. Understanding of the discharge instructions verbalized by patient. Expected course of illness, discharge instructions, activity level, follow-up appointment and risks and benefits of treatment reviewed with patient and understanding verbalized. Agrees to plan of care. 4 Clinical Report - Physicians/Mid Levels [facility] Emergency Department [address] [place] [address] Phone #: ext- [phone] 05/17/2021 12:23 Patient: SANCHEZ PARISH Sex: M : 1990 Age: 31y(Electronically signed by CIRO Cisneros 05/17/2021 16:01) Name Value Range Interpretation Code Description Data Fang rce(s) Supporting Document(s) ID Date Data Source [id number] 05/17/2021 02:47:00 PM EDT [facility] Name Value Range Interpretation Code Description Data Fang rce(s) Supporting Document(s) SARS coronavirus 2 RNA Not Detected [facility] [place] This lab was ordered by [facility] Frandy sanchez and reported by [facility]. ID Date Data Source [id number] 05/20/2021 06:10:00 AM EDT [facility] Name Value Range Interpretation Code Description Data Fang rce(s) Supporting Document(s) SARS-CoV-2, CADY Not Detected Not Detected [facility] This nucleic acid amplification test was developed and its performancecharacteristics determined by [employer]. Nucleic acidamplification tests include RT-PCR and TMA. This test has not beenFDA cleared or approved. This test has been authorized by FDA underan Emergency Use Authorization (EUA). This test is only authorizedfor the duration of time the declaration that circumstances existjustifying the authorization of the emergency use of in vitrodiagnostic tests for detection of SARS-CoV-2 virus and/or diagnosisof COVID-19 infection under section 564(b)(1) of the Act, 21 U.S.C.360bbb-3(b) (1), unless the authorization is terminated or revokedsooner.When diagnostic testing is negative, the possibility of a falsenegative result should be considered in the context of a patient'srecent exposures and the presence of clinical signs and symptomsconsistent with COVID- 19. An individual without symptoms of COVID-19and who is not shedding SARS-CoV-2 virus would expect to have anegative (not detected) result in this assay. SARS-CoV-2, CADY 2 DAY TAT Performed [facility] ID Date Data Source [id number] 05/17/2021 03:10:00 PM EDT [facility] Name Value Range Interpretation Code Description Data Fang rce(s) Supporting Document(s) RAPID STREP NEGATIVE NORMAL: NEGATIVE [facility] RAPID STREP REENTER NEGATIVE NORMAL: NEGATIVE [facility] [employer] { PROCEDURAL CONTROL VALID ){ KIT LOT # [id number] ){ KIT EXP DATE 02/02/22 )The Strep A 2 assay utilizes isothermal nucleic acid amplification technology fothe qualitative detection of Group A Strep bacterial nucleic acid in throat swabspecimens.All negative test results no longer need to be confirmed with a culture. Follow-up testing requiring a culture is necessary if clinical symptoms persist, or inthe event of an acute rheumatic fever outbreak. A culture will need to beordered by the Qualified Medical Provider.Negative results do not preclude infection with Group A Strep and should not beused as the sole basis for treatment. ID Date Data Source [id number] 01/24/2021 03:42:00 PM EDT [facility] ([facility]) Name Value Range Interpretation Code Description Data Fang rce(s) Supporting Document(s) Thyroxine (T4) free [Mass/volume] in Serum or Plasma by Dialysis 1. 2 ng/dL [facility] ([facility]) This test was developed and its performa nce characteristics determined by [facility]. It has not been cleared or approved by the Food and Drug Administration. Reference Range: Pubertal Children and Adults: 0.8 - 1.7 Performed at: [facility] [address] [place] [id number] Manager Rail: López Fontenot MD, Phone: [phone] Thyrotropin [Units/volume] in Serum or Plasma by Detec tion limit <= 0.05 mIU/L 2.150 uIU/ML 0.358-3.740 [facility] ([facility]) Procedure Social History Code Duration Value Status Description Data Source(s ) Smoking 06/11/2021 12:00:00 AM EDT UNK completed eCW1 (On License Of [facility]) Smoking 06/11/2021 12:00:00 AM EDT UNK completed eCW1 (On License Of [facility]) Smoking 06/11/2021 12:00:00 AM EDT UNK completed eCW1 (On License Of [facility]) Smoking 06/11/2021 12:00:00 AM EDT UNK completed eCW1 (On [facility]) Smoking 06/11/2021 12:00:00 AM EDT UNK completed eCW1 (On [facility]) Smoking 06/11/2021 12:00:00 AM EDT UNK completed eCW1 (On [facility]) Smoking 02/26/2021 12:00:00 AM EDT Never Smoked Cigarettes com pleted Never Smoked Cigarettes [facility] ([facility]) Smoking 01/21/2021 12:00:00 AM EDT UNK completed eCW1 (On [facility]) Smoking 01/21/2021 12:00:00 AM EDT UNK completed eCW1 (On [facility]) Smoking 01/21/2021 12:00:00 AM EDT UNK completed eCW1 ([facility]) Smoking 10/19/2020 12:00:00 AM EST UNK completed eCW1 ([facility]) Smoking 10/19/2020 12:00:00 AM EST UNK completed eCW1 ([facility]) Smoking 10/19/2020 12:00:00 AM EST UNK completed eCW1 ([facility]) Smoking 10/19/2020 12:00:00 AM EST UNK completed eCW1 ([facility]) Smoking 10/19/2020 12:00:00 AM EST UNK completed eCW1 (On [facility]) Vital Signs ID Date Data Source UNK Name Value Range Interpretation Code Description Data Source(s) Body weight 353.6 [lb_av] 353.6 [lb_av] eCW1 ([facility]) Body weight 160.39 kg 160.39 kg eCW1 ([facility]) Body height 70 [in_i] 70 [in_i] eCW1 ([facility]) Body mass index (BMI) [Ratio] 50.73 kg/m2 50.73 kg/m2 eCW1 ([facility]) Body weight 157.399 kg 157.399 kg [facility] ([facility]) Body surface area Derived from formula 2.60 m2 2.60 m2 [facility] ([facility], ) Body height 68.5 [in_i] 68.5 [in_i] [facility] ([facility], ) 5'8.50" Body weight 347.00 [lb_av] 347.00 [lb_av] [facility] ([facility], ) Body mass index (BMI) [Ratio] 52.0 kg/m2 52.0 k g/m2 [facility] ([facility], ) [place] body weight 154 [lb_av] 154 [lb_av] [facility] ([facility], ) Body weight 340 [lb_av] 340 [lb_av] eCW1 ([facility]) Body weight 154.22 kg 154.22 kg eCW1 ([facility]) Body height 70 [in_i] 70 [in_i] eCW1 ([facility]) Body mass index (BMI) [Ratio] 48.78 kg/m2 48.78 kg/m2 eCW1 ([facility]) Systolic blood pressure 130 mm[Hg] 130 mm[Hg] e CW1 ([facility]) Diastolic blood pressure 80 mm[Hg] 80 mm[Hg] eCW1 ([facility]) Body weight 340 [lb_av] 340 [lb_av] eCW1 ([facility]) Body weight 154.22 kg 154.22 kg eCW1 ([facility]) Body height 70 [in_i] 70 [in_i] eCW1 ([facility]) Body mass index (BMI) [Ratio] 48.78 kg/m2 48.78 kg/m2 eCW1 ([facility]) Heart rate 97 /min 97 /min eCW1 ([facility]) Respiratory rate 18 /min 18 /min eCW1 ([facility]) Body temperature 97.3 [degF] 97.3 [degF] eCW1 ( [facility]) Systolic blood pressure 130 mm[Hg] 130 mm[Hg] e CW1 ([facility]) Diastolic blood pressure 80 mm[Hg] 80 mm[Hg] eCW1 ([facility]) Body weight 342.00 [lb_av] 342.00 [lb_av] [facility] T ([facility]) Body mass index (BMI) [Ratio] 51.5 kg/m2 51.5 k g/m2 [facility] ([facility]) Systolic blood pressure 140 mm[Hg] 140 mm[Hg] M EDENT ([facility]) Diastolic blood pressure 90 mm[Hg] 90 mm[Hg] [facility] ([facility]) Heart rate 84 /min 84 /min [facility] ([facility]) Body temperature 97.5 [degF] 97.5 [degF] [facility] ([facility]) Body height 68.3 [in_i] 68.3 [in_i] [facility] ([facility]) 5'8.30" Heart rate 77 /min 77 /min [facility] ([facility] ) Oxygen saturation in Arterial blood by Pulse oximetry 97 % 97 % [facility] ([facility]) Systolic blood pressure 126 mm[Hg] 126 mm[Hg] M EDENT ([facility]) Diastolic blood pressure 82 mm[Hg] 82 mm[Hg] [facility] ([facility]) Body temperature 96.9 [degF] 96.9 [degF] [facility] ([facility]) Body height 68.3 [in_i] 68.3 [in_i] [facility] ([facility]) 5'8.30" Body weight 334.38 [lb_av] 334.38 [lb_av] [facility] T ([facility] ) Body mass index (BMI) [Ratio] 50.4 kg/m2 50.4 k g/m2 [facility] ([facility] ) Body weight 346 [lb_av] 346 [lb_av] W1 ([facility]) Body height 70 [in_i] 70 [in_i] eCW1 ([facility]) Body mass index (BMI) [Ratio] 49.64 kg/m2 49.64 kg/m2 [facility] (On License Of [facility]) Heart rate 107 /min 107 /min eCW1 ([facility]) Respiratory rate 18 /min 18 /min W1 ([facility]) Body temperature 97.8 [degF] 97.8 [degF] eCW1 ( On [facility]) Systolic blood pressure 116 mm[Hg] 116 mm[Hg] e CW1 (On [facility]) Diastolic blood pressure 80 mm[Hg] 80 mm[Hg] eCW1 (On [facility]) Systolic blood pressure 138 mm[Hg] 138 mm[Hg] M EDENT ([facility]) Diastolic blood pressure 84 mm[Hg] 84 mm[Hg] [facility] ([facility]) Heart rate 83 /min 83 /min [facility] ([facility]) Body temperature 97.6 [degF] 97.6 [degF] [facility] ([facility]) Body height 68.3 [in_i] 68.3 [in_i] [facility] ([facility]) 5'8.30" Body weight 328.38 [lb_av] 328.38 [lb_av] MED[facility] T ([facility]) Body mass index (BMI) [Ratio] 49.5 kg/m2 49.5 k g/m2 [facility] ([facility]) Oxygen saturation in Arterial blood by Pulse oximetry 98 % 98 % [facility] ([facility]) Body weight 334 [lb_av] 334 [lb_av] eCW1 ([facility]) Body height 70 [in_i] 70 [in_i] eCW1 ([facility]) Body mass index (BMI) [Ratio] 47.92 kg/m2 47.92 kg/m2 eCW1 (On [facility]) Heart rate 98 /min 98 /min eCW1 ([facility]) Respiratory rate 18 /min 18 /min eCW1 ([facility]) Body temperature 97.7 [degF] 97.7 [degF] eCW1 ( [facility]) Systolic blood pressure 134 mm[Hg] 134 mm[Hg] e CW1 ([facility]) Diastolic blood pressure 86 mm[Hg] 86 mm[Hg] eCW1 (On License Of [facility]) Patient Treatment Plan of Care Planned Activity Planned Date Details Description Data Source (s) Glucocard Expression Test - 09/10/2020 12:00:00 AM EST eCW1 (On License Of [facility]) Glucocard Expression Test - 09/10/2020 12:00:00 AM EST eCW1 (On License Of [facility]) Glucocard Expression Test - 09/10/2020 12:00:00 AM EST eCW1 (On [facility] Of [facility])
--- OUTSIDE RECORDS SUMMARY | 2021-08-14 07:53 | CCD ---
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 Name Role Phone Mercy Melendez Unavailable PROBLEMS Type Condition ICD9-CM Code [id number] Code Onset Dates Condition S tatus W/U Status Risk SNOMED Code Notes Problem Headache R51 Active confirmed 76402459 Problem Other hyperlipidemia E78.4 Active confirmed 58011530 Problem Epilepsy, unspecified, not intractable, without status epilepticus G40.909 Active confirmed 55220083 Problem GERD (gastroesophageal reflux disease) K21.9 A ctive confirmed 787980558 Problem Other obesity E66.8 Active confirmed 326834 001 Problem Vitamin D deficiency E55.9 Active confirmed 45016438 Problem Depression F32.9 Active confirmed 73834964 Problem Body mass index (BMI) of 45.0-49.9 in adult Z68.42 Active confirmed 581117994 Problem Sleep apnea, unspecified type G47.30 Active confirm ed 49832832 Problem Ulnar neuropathy at elbow of left upper extremity G56.22 Active confirmed 004440244 Problem Bilateral carpal tunnel syndrome G56.03 Active confirmed 07645161349643131 Problem Morbid (severe) obesity due to excess calories E66 .01 Active confirmed 356374316 Problem Swelling of tonsil J35.1 Active confirmed 4 10164151 Problem Urethral discharge R36.9 Active confirmed 9 330803 Problem Mixed hyperlipidemia E78.2 Active confirmed 831009980 Problem History of bipolar disorder Z86.59 Active confirmed 633264421 Problem Chewing tobacco nicotine dependence without complication F17.220 Active confirmed 50781605 Problem Subclinical hyperthyroidism E05.90 Active confirmed 050318663 ALLERGIES Allergen (clinical drug ingredient) Drug/Non Drug Allergy do cumented on EMR Reaction Allergy Type Onset Date Status Chocolate chocolate vomiting Non Drug Allergy Active ENCOUNTERS from 1989 to 2021-07-02 Encounter Location Date Provider Diagnosis [facility] Nicolasa [address] [facility] [phone] [place] [address] 14 Jun, 2021 Mercy Melendez Morbid obesity E66.01 ; Morb id (severe) obesity due to excess calories E66.01 ; History of bipolar disorder Z86.59 ; Body mass index (BMI) of 45.0-49.9 in adult Z68.42 ; Depression F32.9 ; Mixed hyperlipidemia E78.2 and Chewing tobacco nicotine dependence without complication [...] Education Language: Question Answer Notes Languages spoken: Indian Bahai: Question Answer Notes Bahai 33 None Sexual Hx: Question Answer Notes [...] FOR REFERRAL No Information VITAL SIGNS Weight 340 lbs 14 Jun, 2021 Weight-kg 154.22 kg Jun, Height 70 in Jun, BMI 48.78 kg/m2 Jun, Blood pressure systolic 130 mm Hg Jun, Blood pressure diastolic 80 mm Hg Jun, MEDICATIONS Medication SIG (Take, Route, Frequency, Duration) [...] Mar, Active Vitamin D (Ergocalciferol) 1.25 MG (08190 UT) 1 capsul e Orally once a [...] No Results REASON FOR VISIT follow up MEDICAL (GENERAL) HISTORY Type Description Date Medical [...] Notes Treatment Notes Treatm ent Clinical Notes Jun, Morbid obesity (ICD-10 - E66.01) Jun, Morbid (severe) obesity due to excess calories ( ICD-10 - E66.01) Jun, History of bipolar disorder (ICD-10 - Z86.59) Jun, Body mass index (BMI) of 45.0-49.9 in adult (ICD -10 - Z68.42) Jun, Depression (ICD-10 - F32.9) Jun, Mixed hyperlipidemia (ICD-10 - E78.2) Jun, Chewing tobacco nicotine dep endence without complication (ICD-10 - F17.220) Jun, Other Chronic Care Plan and Goals Labs of Note 11/23/20: HgA1c 5.3 07/06/2020: Trigylcerides 250 (goal <150), Cholesterol HDL 27(goal >40), LDL 96(goal <100) Vitals 01/01/21 : Wt(BMI) 331.2(47.5) 06/11/21 : Wt(BMI) 340 (48.78) 10/19/20 BP 134/86 06/11/21 BP 130/80 Patient Goals with Plan and Timeframe 1)Lose Weight- Plan: Will increase activity by adding intentional exercise, continuing to work outside 4-5 time a week (yardwork with dad, metal scrapping with friend) Lifestyle Change #1: 1 mile or 20 minute morning walk (either outdoors or using [employer] Walking Video) 5 times per week by next visit Lifestyle Change #2: 15 minute of streching 5 times per week by next visit 2)Improve Cholesterol Labwork- Plan: Will improve nutrition by making diet changes Lifestyle Change #3: Reduce soda intake, replace soda with water and low/no calorie sweetener/flavor, only one soda per week by next visit Lifestyle Change #4: Use portion plate method at meal time. Eat at least one vegetable and one fruit daily by next office visit. Lifestyle Change #5: Find one new recipe you like that you can make at home that follows the portion plate. Report on it next visit. Educational Materials: 1800Calorie Meal Plan Pamphlet- Use to reference a balanced meal Planning Healthy Meals Food Nutrition Guide 3)Continue to improve mental health Plan: Continue to attend counseling appointments 4)Attend all scheduled follow-up appointments Plan: Continue to schedule transportation in advance Items to follow-up at next visit: Has there been any change in chewing tobacco usage? Not addressed this visit. Caffeine effects. Please call with any questions, comments, or concerns. PLAN OF TREATMENT Next Appt Details 30 days Reason:Check on Progress Provider Name:Mercy Oquendoimes, 2021-07-30 01:00:00 PM, [address] [facility], , [place], [address], Follow Up:30 daysCheck on Progress Insurance Providers Payer Name Payer Address Payer Phone Insured Name Patient Relati onship to Insured Coverage Start Date Coverage End Date [facility] [address] [facility] [phone] [place] self
--- OUTSIDE RECORDS SUMMARY | 2021-08-14 07:53 | CCD ---
Author Author [facility] Organization [facility] Address Unknown Phone Unavailable Care Team Providers Care Occupational Health Physiotherapist Name Role Phone Renee Sullivan Unavailable PROBLEMS Type Condition ICD9-CM Code [id number] Code Onset Dates Condition S tatus W/U Status Risk SNOMED Code Notes Problem Other obesity E66.8 Active confirmed 129890 001 Problem Epilepsy, unspecified, not intractable, without status epilepticus G40.909 Active confirmed 82632113 Problem Headache R51 Active confirmed 10305070 Problem GERD (gastroesophageal reflux disease) K21.9 A ctive confirmed 518406110 Problem Other hyperlipidemia E78.4 Active confirmed 98643621 Problem Vitamin D deficiency E55.9 Active confirmed 07611433 Problem Depression F32.9 Active confirmed 73580324 Problem Body mass index (BMI) of 45.0-49.9 in adult Z68.42 Active confirmed 057529006 Problem Morbid (severe) obesity due to excess calories E66 .01 Active confirmed 035300444 Problem Sleep apnea, unspecified type G47.30 Active confirm ed 56614642 Problem Bilateral carpal tunnel syndrome G56.03 Active confirmed 00787988408355586 Problem Morbid obesity E66.01 Active confirmed 84365 6002 Problem Subclinical hyperthyroidism E05.90 Active confirmed 156439508 Problem Urethral discharge R36.9 Active confirmed 9 871666 Problem Ulnar neuropathy at elbow of left upper extremity G56.22 Active confirmed 882593148 Problem Mixed hyperlipidemia E78.2 Active confirmed 447064647 Problem Chewing tobacco nicotine dependence without complication F17.220 Active confirmed 42580820 Problem History of bipolar disorder Z86.59 Active confirmed 331572988 ALLERGIES Allergen (clinical drug ingredient) Drug/Non Drug Allergy do cumented on EMR Reaction Allergy Type Onset Date Status Chocolate chocolate vomiting Non Drug Allergy Active ENCOUNTERS from 1989 to 2021-05-31 Encounter Location Date Provider Diagnosis [facility] Nicolasa [address] [facility] [phone] [place] [address] May, Renee Sullivan IMMUNIZATIONS Vaccine Route Administration Date Status Influenza [...] History Observation Description Sex Assigned At Unknown Language: Question Answer Notes Languages spoken: Thai Restorationism: Question Answer Notes Restorationism 33 None Sexual Hx: Question Answer Notes Had sex in the last 12 months (vaginal, oral, or anal)? Yes Have you ever had an STD? No Prevention Strategies discussed: Other with Women only Use protection? No Alcohol Screening: Question Answer Notes Did you [...] Notes Start Da te End Date Status Prazosin HCl 5 MG 1 capsule Orally Daily at bedtime Active Xalatan 0.005 % 1 drop into affected eye in the evening Ophthalm ic Once a day Active traZODone HCl 100 MG 1 tablet at bedtime Orally Once a day Not-Taking Contrave 8-90 MG 2 tablets Orally Twice a day for 30 day( s) Start with one tab twice daily for one week, then increase to 2 tabs twice daily Oct, Not-Taking oxyCODONE-Acetaminophen 5-325 MG (Schedule II Drug) TA KE ONE TABLET BY MOUTH EVERY 6 HOURS NEEDED FOR PAIN MAXIMUM DAILY DOSE 5 Oral for 3 Not-Taking Vraylar 1.5 MG 1 cap Orally Once a day Not-Taking Triamcinolone Acetonide 0.1 % 1 application to rash on forearms Externally Twice a day for 7 day(s) May, Not-Taking Topiramate 100 mg 1 tab Orally Daily at bedtime Dr Baer Not-Taking Omeprazole 20 MG TAKE ONE CAPSULE BY MOUTH EVERY DAY for 30 duplicate Not-Taking Naltrexone HCl 50 MG half of a tablet orally BID for 30 days Not-Taking Wrist Brace - as directed left wrist to be worn nightl y, Dx: G56.03 for 99 days Jan, Active Vitamin D (Ergocalciferol) 1.25 MG (29367 UT) 1 capsul e Orally once a week for 90 days Sep, Not-Taking hydrOXYzine HCl 50 MG 1 tablet as needed Orally every 8 hrs Active buPROPion HCl ER (SR) 150 MG 1 tablet Orally Twice a day for 90 day(s ) Not-Taking Trulicity 0.75 MG/0.5ML as directed Subcutaneous weekly for 30 d ay(s) Nov, Not-Taking Artificial Tears 1.4 % Ophthalmic A ctive MiraLax 1 packet mixed with 8 ounces of fluid Or ally Once a day for 30 day(s) taking as needed February, Active Omeprazole 40 MG 1 capsule Orally Once a day for 90 day(s) Active Glucocard Expression Test - as directed In Vitro three times daily for 30 Days Aug, Not-Taking Vitamin D 2000 UNIT 1 tablet Orally Once a day for 90 day(s) Nov, Active Wrist Brace - as directed right wrist to b e worn nightly, Dx: G56.03 for 99 days Jan, Active Ibuprofen 800 MG 1 tablet with food or milk as needed Ora lly Three times a day Active Nicorette Mini 2 MG 1 lozenge as needed Mouth/Th roat q2 hours prn. MDD 12 for 30 day(s) Mar, Active Gabapentin 300 MG 1 capsule before bedtime Ora lly three times daily for 90 day(s) Active Prazosin HCl 2 MG 1 capsule at bedtime Orally Once a day for 30 day(s ) Active PROCEDURES No Information RESULTS No Results REASON FOR VISIT no show MEDICAL (GENERAL) HISTORY Type Description Date Medical History Testalgia Medical History Anxiety Medical History Depression Medical History Hallucination Medical History Obesity Medical History Penile discharge Medical History Arthritis right knee Medical History primary open angle glaucoma, mild, left eye- follows with ophthalmology Surgical History wisdom teeth removal 10/2019 Hospitalization History psychiatric illness 05/06/14- 4 Goals Section No Information Health Concerns No Information MEDICAL EQUIPMENT No Information MENTAL STATUS No Information FUNCTIONAL STATUS No Information ASSESSMENTS No Information PLAN OF TREATMENT Medication Medication Name Sig Start Date Stop Date Omeprazole 40 MG 1 capsule Orally Once a day for 90 day(s) Insurance Providers Payer Name Payer Address Payer Phone Insured Name Patient Relati onship to Insured Coverage Start Date Coverage End Date [facility] [employer] [address] [facility] [address] [address] [place] self
--- OUTSIDE RECORDS SUMMARY | 2021-08-14 07:53 | CCD ---
Author Author [facility] Organization [facility] Address Unknown Phone Unavailable Care Team Providers Care Slackline Operator Name Role Phone Renee Sullivan Unavailable PROBLEMS Type Condition ICD9-CM Code [id number] Code Onset Dates Condition S tatus W/U Status Risk SNOMED Code Notes Problem Headache R51 Active confirmed 44381864 Problem Other hyperlipidemia E78.4 Active confirmed 36496285 Problem Epilepsy, unspecified, not intractable, without status epilepticus G40.909 Active confirmed 93207332 Problem GERD (gastroesophageal reflux disease) K21.9 A ctive confirmed 975030039 Problem Other obesity E66.8 Active confirmed 343671 001 Problem Vitamin D deficiency E55.9 Active confirmed 74885106 Problem Depression F32.9 Active confirmed 19962586 Problem Body mass index (BMI) of 45.0-49.9 in adult Z68.42 Active confirmed 054747262 Problem Sleep apnea, unspecified type G47.30 Active confirm ed 66782895 Problem Ulnar neuropathy at elbow of left upper extremity G56.22 Active confirmed 894858089 Problem Bilateral carpal tunnel syndrome G56.03 Active confirmed 95200229058750552 Problem Morbid (severe) obesity due to excess calories E66 .01 Active confirmed 424940330 Problem Swelling of tonsil J35.1 Active confirmed 4 65162223 Problem Urethral discharge R36.9 Active confirmed 9 639776 Problem Mixed hyperlipidemia E78.2 Active confirmed 006373304 Problem History of bipolar disorder Z86.59 Active confirmed 136451094 Problem Chewing tobacco nicotine dependence without complication F17.220 Active confirmed 06801780 Problem Subclinical hyperthyroidism E05.90 Active confirmed 025022646 ALLERGIES Allergen (clinical drug ingredient) Drug/Non Drug Allergy do cumented on EMR Reaction Allergy Type Onset Date Status Chocolate chocolate vomiting Non Drug Allergy Active ENCOUNTERS from 1989 to 2021-07-04 Encounter Location Date Provider [facility]a [address] [facility] [phone] [place] [address] Jun, Renee Sullivan IMMUNIZATIONS Vaccine Route Administration Date [...] Education Language: Question Answer Notes Languages spoken: Namibian Judaism: Question Answer Notes Judaism 33 None Sexual Hx: Question Answer Notes [...] Mar, Active Vitamin D (Ergocalciferol) 1.25 MG (62040 UT) 1 capsul e Orally once a [...] Information RESULTS No Results REASON FOR VISIT [facility] referral form MEDICAL (GENERAL) HISTORY Type Description Date Medical [...] Provider Name:Mercy Melendez, 2021-07-30 01:00:00 PM, [address] [facility], , [place], [address], Insurance Providers Payer Name Payer Address Payer Phone Insured Name Patient Relati onship to Insured Coverage Start Date Coverage End Date [facility] [address] [facility] [phone] [place] self
[2021-08-14] MEDS ORDERED: SUGAMMADEX SODIUM 500 MG/5 ML VIAL (BRIDION) As Ordered ONE (07:56)
[2021-08-14] MEDS ORDERED: dexameTHASONE 4 MG/ML 1ML VIAL (J1100 PER 1MG) As Ordered ONE (07:57)
[2021-08-14] MEDS ORDERED: ONDANSETRON 4MG/2ML VIAL As Ordered ONE (07:57)
[2021-08-14] MEDS ORDERED: LIDOCAINE 2% 100MG/5ML SDV (FOR ANES.) As Ordered ONE (07:57)
[2021-08-14] MEDS ORDERED: propofoL 200 MG/20 ML VIAL As Ordered ONE ×2 (07:57→09:18)
[2021-08-14] MEDS ORDERED: MIDAZOLAM INJ 2MG/2ML VIAL (J2250 PER 1MG) As Ordered ONE (07:57)
[2021-08-14] MEDS ORDERED: ROCURONIUM BROMIDE 50 MG/5 ML VIAL As Ordered ONE (07:57)
[2021-08-14] MEDS ORDERED: fentaNYL 100 MCG/2 ML INJECTION (J3010) As Ordered ONE (07:57)
[2021-08-14] MEDS ORDERED: LIDOCAINE W/EPINEPHRINE 1% 20ML VIAL As Ordered ONE (08:10)
[2021-08-14] MEDS ORDERED: BUPIVACAINE/EPIN 0.5% 30 ML VIAL As Ordered ONE (08:11)
[2021-08-14] MEDS ORDERED: ACETAMINOPHEN 1000MG 100ML IV BTL (OFIRMEV) (J0131 PER 10MG) As Ordered ONE (09:07)
[2021-08-14] MEDS ORDERED: ONDANSETRON 4MG/2ML VIAL IV PRN (09:45)
[2021-08-14] MEDS ORDERED: oxyCODONE 5MG TAB PO PRN (09:45)
[2021-08-14] MEDS ORDERED: LR 1,000 ML IV SCH ×2 (09:45)
[2021-08-14] MEDS ORDERED: fentaNYL 100 MCG/2 ML INJECTION (J3010) IV PRN (09:45)
[2021-08-14] MEDS ORDERED: NORCO, ANEXSIA 5/325MG TABLET (HYDROcodone/ACETAMINOPHEN) PO PRN (09:50)
[2021-08-14 10:55] VITALS: BP 117/74
--- NOTE | 2021-08-14 15:20 | RO ---
OPERATIVE NOTE DATE OF OPERATION: 08/14/2021 PREOPERATIVE DIAGNOSIS: Chronic tonsillitis. POSTOPERATIVE DIAGNOSIS: Chronic tonsillitis. PROCEDURE: Tonsillectomy. SURGEON: JOY DAMON MD DESCRIPTION OF PROCEDURE: Under general anesthesia, the patient was prepped and draped in the usual manner. The patient was intubated and a Mayers-Robert mouth gag was inserted. The tonsil area was infiltrated with lidocaine, Epinephrine and Marcaine. Using cautery, I dissected the tonsil free from its bed on both sides. The base and apex and other areas were cauterized where there were vessels. The patient tolerated the procedure well. Estimated blood loss was 1 ml. DISPOSITION: The patient was extubated and transferred to the recovery room in excellent condition.
== END 2021-08-14 11:15 | disposition home or self-care (01) ==
LOC: M SDC 07:47
PROVIDERS: ATTEND Otolaryngology
DX: J35.01 Chronic tonsillitis (principal); M54.2 Cervicalgia; F43.10 Post-traumatic stress disorder, unspecified; G47.33 Obstructive sleep apnea (adult) (pediatric); F17.220 Nicotine dependence, chewing tobacco, uncomplicated; Z79.899 Other long term (current) drug therapy
CPT/HCPCS: 42826; 88302; J0131; J1100; J2250; J2405; J3010

== ENCOUNTER → 2021-12-04 | Outpatient (CLI) | payer OTHER ==
[~2021-12-04] MED LIST changes: -LIDOCAINE 1% MDV 20ML VIAL SQ PRN; -LR 1,000 ML IV ONE; -OMEP-221 PO; +OMEP40CA5 PO
[2021-12-04 18:06] LABS: BASO # 0.1 10^3/uL (0.0-0.2); BASO % 0.9 % (0.0-1.0); EOS # 0.2 10^3/uL (0.0-0.5); EOS % 2.3 % (0.0-3.0); HEMATOCRIT 42.5 % (42.0-52.0); LYMPH # 3.1 10^3/uL (1.5-5.0); MEAN CORPUSCULAR HEMOGLOBIN 27.5 pg (27.0-33.0); MEAN CORPUSCULAR HGB CONC 32.9 g/dl (32.0-36.5); MEAN CORPUSCULAR VOLUME 83.5 fl (80.0-96.0); MONO # 0.5 10^3/uL (0.0-0.8); MONO % 5.2 % (2.0-8.0); NEUTROPHILS # 5.7 10^3/uL (1.5-8.5); NEUTROPHILS % 58.9 % (36.0-66.0); PLATELET COUNT, AUTOMATED 301 10^3/uL (150-450); RED BLOOD COUNT 5.09 10^6/uL (4.30-6.10); WHITE BLOOD COUNT 9.6 10^3/uL (4.0-10.0)
[2021-12-04 18:40] LABS: ALBUMIN 3.7 GM/DL (3.2-5.2); ALT/SGPT 50 U/L (12-78); BILIRUBIN,TOTAL 0.3 MG/DL (0.2-1.0); BLOOD UREA NITROGEN 12 MG/DL (7-18); CALCIUM LEVEL 8.7 MG/DL (8.5-10.1); CARBON DIOXIDE LEVEL 29 MEQ/L (21-32); CHLORIDE LEVEL 106 MEQ/L (98-107); CHOLESTEROL LEVEL 167 MG/DL (<200); CHOLESTEROL RISK RATIO 6.958 (<5); CREATININE FOR GFR 0.93 MG/DL (0.70-1.30); FREE T4 1.77 NG/DL (0.76-1.46); GLOMERULAR FILTRATION RATE > 60.0 (>60); GLUCOSE, FASTING 84 MG/DL (70-100); HDL CHOLESTEROL 24 MG/DL (>40); LDL CHOLESTEROL 78 MG/DL (<100); NON-HDL-C 143 MG/DL; POTASSIUM SERUM 4.2 MEQ/L (3.5-5.1); SODIUM LEVEL 139 MEQ/L (136-145); TOTAL PROTEIN 7.3 GM/DL (6.4-8.2); TRIGLYCERIDES LEVEL 323 MG/DL (<150)
[2021-12-04 19:13] LABS: HEMOGLOBIN A1c 5.6 %
== END ==
LOC: M PLALAB 15:32
PROVIDERS: ATTEND Nurse Practitioner Family
DX: E05.90 Thyrotoxicosis, unspecified without thyrotoxic crisis or storm (principal); G40.909 Epilepsy, unspecified, not intractable, without status epilepticus; E55.9 Vitamin D deficiency, unspecified; E78.2 Mixed hyperlipidemia

== ENCOUNTER → 2022-05-23 | Outpatient (CLI) | payer OTHER ==
[2022-05-23 15:43] LABS: BASO # 0.1 10^3/uL (0.0-0.2); BASO % 0.9 % (0.0-1.0); EOS # 0.2 10^3/uL (0.0-0.5); HEMOGLOBIN 13.7 g/dl (13.5-17.5); LYMPH % 25.2 % (24.0-44.0); MEAN CORPUSCULAR HEMOGLOBIN 27.6 pg (27.0-33.0); MEAN CORPUSCULAR HGB CONC 32.6 g/dl (32.0-36.5); MEAN CORPUSCULAR VOLUME 84.7 fl (80.0-96.0); MONO # 0.5 10^3/uL (0.0-0.8); MONO % 5.8 % (2.0-8.0); NEUTROPHILS # 5.2 10^3/uL (1.5-8.5); NEUTROPHILS % 65.3 % (36.0-66.0); PLATELET COUNT, AUTOMATED 237 10^3/uL (150-450); RED BLOOD COUNT 4.96 10^6/uL (4.30-6.10); WHITE BLOOD COUNT 7.9 10^3/uL (4.0-10.0)
[2022-05-23 16:15] LABS: HEMOGLOBIN A1c 5.5 %
[2022-05-23 16:53] LABS: ALBUMIN 3.5 GM/DL (3.2-5.2); ALT/SGPT 37 U/L (12-78); BILIRUBIN,TOTAL 0.4 MG/DL (0.2-1.0); BLOOD UREA NITROGEN 17 MG/DL (7-18); CALCIUM LEVEL 8.5 MG/DL (8.5-10.1); CARBON DIOXIDE LEVEL 26 MEQ/L (21-32); CHLORIDE LEVEL 107 MEQ/L (98-107); CHOLESTEROL LEVEL 133 MG/DL (<200); CREATININE FOR GFR 0.86 MG/DL (0.70-1.30); FREE T4 1.37 NG/DL (0.76-1.46); GLOMERULAR FILTRATION RATE > 60.0 (>60); GLUCOSE, FASTING 114 MG/DL (70-100); HDL CHOLESTEROL 28 MG/DL (>40); LDL CHOLESTEROL 60 MG/DL (<100); NON-HDL-C 105 MG/DL; POTASSIUM SERUM 3.8 MEQ/L (3.5-5.1); SODIUM LEVEL 138 MEQ/L (136-145); TOTAL PROTEIN 7.2 GM/DL (6.4-8.2); TRIGLYCERIDES LEVEL 223 MG/DL (<150)
[2022-05-23 17:26] LABS: TOTAL 25(OH) VITAMIN D 35.6 NG/ML (30.0-100.0)
[2022-05-23 17:27] LABS: VITAMIN B12 LEVEL 362 PG/ML (247-911)
== END ==
LOC: M PLALAB 13:44
PROVIDERS: ATTEND Nurse Practitioner Family
DX: R73.09 Other abnormal glucose (principal); R51.9 Headache, unspecified; E78.2 Mixed hyperlipidemia; E55.9 Vitamin D deficiency, unspecified; E05.90 Thyrotoxicosis, unspecified without thyrotoxic crisis or storm

== ENCOUNTER → 2023-07-14 | Outpatient (CLI) | payer OTHER ==
[2023-07-14 17:19] LABS: BASO # 0.1 10^3/uL (0.0-0.2); EOS # 0.1 10^3/uL (0.0-0.5); EOS % 1.4 % (0.0-3.0); HEMATOCRIT 45.5 % (42.0-52.0); HEMOGLOBIN 14.9 g/dl (13.5-17.5); LYMPH # 2.9 10^3/uL (1.5-5.0); LYMPH % 30.9 % (24.0-44.0); MEAN CORPUSCULAR HEMOGLOBIN 27.7 pg (27.0-33.0); MEAN CORPUSCULAR HGB CONC 32.7 g/dl (32.0-36.5); MEAN CORPUSCULAR VOLUME 84.6 fl (80.0-96.0); MONO # 0.5 10^3/uL (0.0-0.8); MONO % 5.4 % (2.0-8.0); NEUTROPHILS # 5.7 10^3/uL (1.5-8.5); NEUTROPHILS % 60.8 % (36.0-66.0); PLATELET COUNT, AUTOMATED 305 10^3/uL (150-450); RED BLOOD COUNT 5.38 10^6/uL (4.30-6.10); WHITE BLOOD COUNT 9.3 10^3/uL (4.0-10.0)
[2023-07-14 17:38] LABS: ALKALINE PHOSPHATASE 102 U/L (46-116); ALT/SGPT 38 U/L (7.0-40); AST/SGOT 18 U/L (<34); BILIRUBIN,TOTAL 0.4 MG/DL (0.3-1.2); BLOOD UREA NITROGEN 18 MG/DL (9-23); CALCIUM LEVEL 8.9 MG/DL (8.5-10.1); CARBON DIOXIDE LEVEL 25 MMOL/L (20-31); CHLORIDE LEVEL 107 MMOL/L (98-107); CHOLESTEROL LEVEL 164 MG/DL (<200); CHOLESTEROL RISK RATIO 5.89 (<5); CREATININE FOR GFR 0.85 MG/DL (0.70-1.30); GLOMERULAR FILTRATION RATE > 60.0 (>60); GLUCOSE, FASTING 85 MG/DL (60-100); HDL CHOLESTEROL 27.8 MG/DL (>40); NON-HDL-C 136.2 MG/DL; POTASSIUM SERUM 4.5 MMOL/L (3.5-5.1); SODIUM LEVEL 140 MMOL/L (136-145); TOTAL PROTEIN 7.6 G/DL (5.7-8.2); TRIGLYCERIDES LEVEL 211 MG/DL (<150)
[2023-07-14 17:39] LABS: HEMOGLOBIN A1c 5.5 % (4.0-6.0)
[2023-07-14 17:41] LABS: TOTAL 25(OH) VITAMIN D 32.5 NG/ML (20.0-100.0)
[2023-07-14 17:42] LABS: FREE T4 1.27 NG/DL (0.89-1.76); THYROID STIMULATING HORMONE 3.148 uIU/ML (0.55-4.78)
== END ==
LOC: M PLALAB 15:40
PROVIDERS: ATTEND Nurse Practitioner Family
DX: E05.90 Thyrotoxicosis, unspecified without thyrotoxic crisis or storm (principal)

== ENCOUNTER → 2023-12-29 | Outpatient (CLI) | payer OTHER ==
[2023-12-29 15:58] LABS: BASO # 0.1 10^3/uL (0.0-0.2); BASO % 0.8 % (0.0-1.0); EOS # 0.1 10^3/uL (0.0-0.5); EOS % 1.2 % (0.0-3.0); HEMATOCRIT 43.2 % (42.0-52.0); HEMOGLOBIN 14.4 g/dl (13.5-17.5); LYMPH # 2.1 10^3/uL (1.5-5.0); LYMPH % 23.9 % (24.0-44.0); MEAN CORPUSCULAR HEMOGLOBIN 28.2 pg (27.0-33.0); MEAN CORPUSCULAR HGB CONC 33.3 g/dl (32.0-36.5); MEAN CORPUSCULAR VOLUME 84.7 fl (80.0-96.0); MONO # 0.5 10^3/uL (0.0-0.8); MONO % 5.4 % (2.0-8.0); NEUTROPHILS # 6.1 10^3/uL (1.5-8.5); NEUTROPHILS % 68.1 % (36.0-66.0); PLATELET COUNT, AUTOMATED 280 10^3/uL (150-450); WHITE BLOOD COUNT 8.9 10^3/uL (4.0-10.0)
[2023-12-29 16:12] LABS: HEMOGLOBIN A1c 5.6 % (4.0-6.0)
[2023-12-29 16:25] LABS: ALBUMIN 3.8 G/DL (3.2-5.2); ALKALINE PHOSPHATASE 102 U/L (46-116); ALT/SGPT 45 U/L (7.0-40); AST/SGOT 16 U/L (<34); BILIRUBIN,TOTAL 0.4 MG/DL (0.3-1.2); BLOOD UREA NITROGEN 12 MG/DL (9-23); CALCIUM LEVEL 9.1 MG/DL (8.5-10.1); CARBON DIOXIDE LEVEL 29 MMOL/L (20-31); CHLORIDE LEVEL 104 MMOL/L (98-107); CHOLESTEROL LEVEL 150 MG/DL (<200); CHOLESTEROL RISK RATIO 5.47 (<5); CREATININE FOR GFR 0.84 MG/DL (0.70-1.30); GLOMERULAR FILTRATION RATE > 60.0 (>60); GLUCOSE, FASTING 102 MG/DL (60-100); HDL CHOLESTEROL 27.4 MG/DL (>40); LDL CHOLESTEROL 77.6 MG/DL (<100); NON-HDL-C 122.6 MG/DL; POTASSIUM SERUM 4.7 MMOL/L (3.5-5.1); SODIUM LEVEL 137 MMOL/L (136-145); TOTAL PROTEIN 7.3 G/DL (5.7-8.2); TRIGLYCERIDES LEVEL 225 MG/DL (<150)
[2023-12-29 16:27] LABS: THYROID STIMULATING HORMONE 2.906 uIU/ML (0.55-4.78)
== END ==
LOC: M PLALAB 14:05
PROVIDERS: ATTEND Nurse Practitioner Family
DX: E05.90 Thyrotoxicosis, unspecified without thyrotoxic crisis or storm (principal); E78.2 Mixed hyperlipidemia; E55.9 Vitamin D deficiency, unspecified; R73.09 Other abnormal glucose

== ENCOUNTER → 2024-11-28 | Outpatient (CLI) | payer OTHER ==
[2024-11-28 15:17] LABS: HEMATOCRIT 40.9 % (42.0-52.0); HEMOGLOBIN 13.5 g/dl (13.5-17.5); MEAN CORPUSCULAR HEMOGLOBIN 27.4 pg (27.0-33.0); PLATELET COUNT, AUTOMATED 225 10^3/uL (150-450); RED BLOOD COUNT 4.93 10^6/uL (4.30-6.10); WHITE BLOOD COUNT 6.3 10^3/uL (4.0-10.0)
[2024-11-28 15:32] LABS: HEMOGLOBIN A1c 5.7 % (4.0-6.0)
[2024-11-28 15:37] LABS: ATYPICAL LYMPH 6 % (0-5); EOSINOPHILS 2 % (0-3); LYMPHOCYTES 43 % (16-44); MONOCYTES 3 % (0-5); NEUTROPHILS 46 % (28-66); PLATELET ESTIMATE NORMAL (NORMAL)
[2024-11-28 15:42] LABS: ALBUMIN 3.3 G/DL (3.2-5.2); ALKALINE PHOSPHATASE 81 U/L (40-129); ALT/SGPT 35 U/L (7.0-40); AST/SGOT 17 U/L (<34); BILIRUBIN,TOTAL 0.3 MG/DL (0.3-1.2); BLOOD UREA NITROGEN 9 MG/DL (9-23); CALCIUM LEVEL 8.7 MG/DL (8.5-10.1); CARBON DIOXIDE LEVEL 31 MMOL/L (20-31); CHLORIDE LEVEL 108 MMOL/L (98-107); CHOLESTEROL LEVEL 130 MG/DL (<200); CHOLESTEROL RISK RATIO 6.37 (<5); CREATININE FOR GFR 0.85 MG/DL (0.70-1.30); GLOMERULAR FILTRATION RATE > 60.0 (>60); GLUCOSE, FASTING 95 MG/DL (60-100); HDL CHOLESTEROL 20.4 MG/DL (>40); LDL CHOLESTEROL 77.2 MG/DL (<100); NON-HDL-C 109.6 MG/DL; POTASSIUM SERUM 4.3 MMOL/L (3.5-5.1); SODIUM LEVEL 146 MMOL/L (136-145); TOTAL PROTEIN 6.9 G/DL (5.7-8.2); TRIGLYCERIDES LEVEL 162 MG/DL (<150)
[2024-11-28 15:44] LABS: FREE T4 1.51 NG/DL (0.89-1.76); THYROID STIMULATING HORMONE 2.519 uIU/ML (0.55-4.78)
== END ==
LOC: M PLALAB 14:00
PROVIDERS: ATTEND Nurse Practitioner Family
DX: E05.90 Thyrotoxicosis, unspecified without thyrotoxic crisis or storm (principal); E78.2 Mixed hyperlipidemia; E55.9 Vitamin D deficiency, unspecified; R73.09 Other abnormal glucose

== ENCOUNTER → 2025-02-03 | Outpatient (CLI) | payer OTHER ==
[2025-02-03 15:42] LABS: BASO # 0.1 10^3/uL (0.0-0.2); BASO % 0.8 % (0.0-1.0); EOS # 0.3 10^3/uL (0.0-0.5); EOS % 4.5 % (0.0-3.0); HEMATOCRIT 42.8 % (42.0-52.0); HEMOGLOBIN 14.2 g/dl (13.5-17.5); LYMPH # 2.2 10^3/uL (1.5-5.0); LYMPH % 28.8 % (24.0-44.0); MEAN CORPUSCULAR HEMOGLOBIN 27.9 pg (27.0-33.0); MEAN CORPUSCULAR HGB CONC 33.2 g/dl (32.0-36.5); MEAN CORPUSCULAR VOLUME 84.1 fl (80.0-96.0); MONO # 0.7 10^3/uL (0.0-0.8); MONO % 9.1 % (2.0-8.0); NEUTROPHILS # 4.2 10^3/uL (1.5-8.5); NEUTROPHILS % 56.1 % (36.0-66.0); PLATELET COUNT, AUTOMATED 269 10^3/uL (150-450); RED BLOOD COUNT 5.09 10^6/uL (4.30-6.10); WHITE BLOOD COUNT 7.5 10^3/uL (4.0-10.0)
[2025-02-03 15:47] LABS: ALBUMIN 3.6 G/DL (3.2-5.2); ALKALINE PHOSPHATASE 101 U/L (40-129); ALT/SGPT 29 U/L (7.0-40); AST/SGOT 12 U/L (<34); BILIRUBIN,TOTAL 0.3 MG/DL (0.3-1.2); BLOOD UREA NITROGEN 14 MG/DL (9-23); CALCIUM LEVEL 8.8 MG/DL (8.5-10.1); CARBON DIOXIDE LEVEL 30 MMOL/L (20-31); CHLORIDE LEVEL 105 MMOL/L (98-107); CHOLESTEROL LEVEL 142 MG/DL (<200); CHOLESTEROL RISK RATIO 5.74 (<5); CREATININE FOR GFR 0.97 MG/DL (0.70-1.30); GLOMERULAR FILTRATION RATE > 90.0 (>60); GLUCOSE, FASTING 105 MG/DL (60-100); HDL CHOLESTEROL 24.7 MG/DL (>40); LDL CHOLESTEROL 90.3 MG/DL (<100); NON-HDL-C 117.3 MG/DL; POTASSIUM SERUM 4.7 MMOL/L (3.5-5.1); SODIUM LEVEL 143 MMOL/L (136-145); TOTAL PROTEIN 7.2 G/DL (5.7-8.2); TRIGLYCERIDES LEVEL 135 MG/DL (<150)
[2025-02-03 15:51] LABS: FREE T4 1.37 NG/DL (0.89-1.76); THYROID STIMULATING HORMONE 2.446 uIU/ML (0.55-4.78)
[2025-02-03 15:59] LABS: HEMOGLOBIN A1c 5.6 % (4.0-6.0)
== END ==
LOC: M PLALAB 13:02
PROVIDERS: ATTEND Nurse Practitioner Family
DX: E78.2 Mixed hyperlipidemia (principal); E05.90 Thyrotoxicosis, unspecified without thyrotoxic crisis or storm; E55.9 Vitamin D deficiency, unspecified; I10 Essential (primary) hypertension; R73.09 Other abnormal glucose

== ENCOUNTER → 2025-06-29 | Outpatient (REF) | payer OTHER ==
[~2025-06-29] MED LIST changes: -IBUP-1022 PO; +IBUP600T42 PO
[2025-06-29 13:01] LABS: BASO # 0.1 10^3/uL (0.0-0.2); BASO % 1.3 % (0.0-1.0); EOS # 0.1 10^3/uL (0.0-0.5); EOS % 1.6 % (0.0-3.0); LYMPH # 2.6 10^3/uL (1.5-5.0); LYMPH % 30.3 % (24.0-44.0); MONO # 0.5 10^3/uL (0.0-0.8); MONO % 6.1 % (2.0-8.0); NEUTROPHILS # 5.2 10^3/uL (1.5-8.5); NEUTROPHILS % 60.0 % (36.0-66.0); PLATELET COUNT, AUTOMATED 297 10^3/uL (150-450)
[2025-06-29 13:09] LABS: ALT/SGPT 35 U/L (7.0-40); AST/SGOT 24 U/L (<34); CALCIUM LEVEL 8.9 MG/DL (8.5-10.1); CARBON DIOXIDE LEVEL 25 MMOL/L (20-31); CHLORIDE LEVEL 104 MMOL/L (98-107); CREATININE FOR GFR 0.81 MG/DL (0.70-1.30); GLOMERULAR FILTRATION RATE > 90.0 (>60); POTASSIUM SERUM 3.9 MMOL/L (3.5-5.1); SODIUM LEVEL 139 MMOL/L (136-145)
[2025-06-29 13:12] LABS: INR 1.01
== END ==
LOC: M SFHCPLAZ 09:02
PROVIDERS: ATTEND Family Medicine
DX: Z01.810 Encounter for preprocedural cardiovascular examination (principal)